=== PATIENT | female | born 1965 | race African-American/Black ===

== ENCOUNTER 2016-10-07 19:24 | Emergency (ER) | payer BC ==
--- NOTE | 2016-10-07 19:37 | PDOC ---
History of Present Illness <Lukas Medley - Last Filed: 10/07/16 19:33> - General History Source: Patient Exam Limitations: No Limitations <Alec Whipple - Last Filed: 10/07/16 19:38> - General Chief Complaint: Chest Pain Stated Complaint: CHEST PAIN X ONE WEEK Time Seen by Provider: 10/07/16 19:25 - History of Present Illness Initial Comments: 10/07/16 19:38 The patient is a 50 year old female, with a significant past medical history of SBO, who presents to the emergency department with chest pain for the past week. She notes that her chest pain is intermittent in nature, with radiation to her left arm. She denies any modifying factors. She reports that she has been under stress lately. She notes that she took an Aspirin prior to coming to the ED. 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 She denies shortness of breath, diaphoresis, nausea or vomiting. Allergies: Penicillins Past surgical history: tubal ligation, rotator cuff repair right shoulder 2010 Social history: Former smoker (quit 20 years ago). Alcohol use. No drug use reported PMD: Dr. Yulia Deleon (Alec Whipple) Past History - Past Medical History Anemia: No Asthma: No Cancer: No Cardiac Disorders: No CVA: No COPD: No CHF: No Dementia: No Diabetes: No GI Disorders: Yes (SBO) Disorders: No HTN: No Hypercholesterolemia: No Liver Disease: No Seizures: No Thyroid Disease: No - Surgical History Abdominal Surgery: Yes (tubal ligation) Appendectomy: No Cardiac Surgery: No Cholecystectomy: No Lung Surgery: No Neurologic Surgery: No Orthopedic Surgery: Yes (rotator cuff repair right shoulder 2010) - Reproductive History Tubal Ligation: Yes - Psycho/Social/Smoking Cessation Hx Anxiety: No Suicidal Ideation: No Smoking Status: No Smoking History: Former smoker Have you smoked in the past 12 months: No Number of Cigarettes Smoked Daily: 0 If you are a former smoker, when did you quit?: 20 YEARS AGO Information on smoking cessation initiated: No Hx Alcohol Use: No Drug/Substance Use Hx: No Substance Use Type: None Hx Substance Use Treatment: No <Lukas Medley - Last Filed: 10/07/16 19:33> <Alec Whipple - Last Filed: 10/07/16 19:38> - Past Medical History Allergies/Adverse Reactions: Allergies Allergy/AdvReac Type Severity Reaction Status Date / Time Penicillins Allergy Rash Verified 10/07/16 19:26 Home Medications: Ambulatory Orders NK [No Known Home Medication] 11/11/15 Cardiac Specific PMH - Complaint Specific PMHX Angina: No Cardiac Arrhythmia: No Cardiac Stent: No GERD: Yes Pacemaker: No Pulmonary Embolus: No Peripheral Vascular Disease: No <Lukas Medley - Last Filed: 10/07/16 19:33> Review of Systems - Review of Systems Able to Perform ROS?: Yes Cardiac (ROS): Yes: Chest Pain All Other Systems: Reviewed and Negative <Alec Whipple - Last Filed: 10/07/16 19:38> *Physical Exam - Physical Exam General Appearance: Yes: Nourished, Appropriately Dressed, Other (slightly anxious). No: Apparent Distress HEENT: positive: Normal ENT Inspection Neck: positive: Tender (lt trapz + trigger point reproducing symptoms) Respiratory/Chest: positive: Chest Tender (lt 2 ICS mcl), Lungs Clear, Normal Breath Sounds. negative: Respiratory Distress Cardiovascular: positive: Regular Rhythm, Regular Rate Musculoskeletal: positive: Normal Inspection. negative: Vertebral Tenderness Extremity: positive: Normal Capillary Refill, Normal Inspection, Normal Range of Motion Integumentary: positive: Normal Color. negative: Rash Neurologic: positive: Fully Oriented, Alert, Normal Mood/Affect, Normal Response , Motor Strength 5/5 <Lukas Medley - Last Filed: 10/07/16 19:33> - Vital Signs Last Vital Signs Temp Pulse Resp BP Pulse Ox 98.3 F 70 16 118/83 99 10/07/16 19:27 10/07/16 19:27 10/07/16 19:27 10/07/16 19:27 10/07/16 19:27 Heart Score/ECG Review - Electrocardiogram EKG: Normal <Lukas Medley - Last Filed: 10/07/16 19:33> *DC/Admit/Observation/Transfer <Lukas Medley - Last Filed: 10/07/16 19:33> <Alec Whipple - Last Filed: 10/07/16 19:38> Diagnosis at time of Disposition: Cervical radiculopathy - Discharge Dispostion Disposition: HOME Condition at time of disposition: Stable - Referrals Referrals: Yulia Deleon MD [Primary Care Provider] - Call tomorrow - Patient Instructions Printed Discharge Instructions: DI for Atypical Chest Pain Additional Instructions: IBUPROFEN 400 MG 3 TIMES A DAY FOR 3 DAYS SEE YOUR DOCTOR THIS WEEK RETURN IF WORSENING OR NEW SYMPTOMS - Attestations Scribe Attestion: 10/07/16 19:38 Documentation prepared by Alec Whipple, acting as medical planner for Lukas Medley MD (Sole,Alec South)
[2016-10-07 19:56] VITALS: BP 118/83; PULSE 70; TEMP 98.3; BMI 38.7
--- NOTE | 2016-10-09 21:34 | EKG ---
Test Reason : Blood Pressure : / mmHG Vent. Rate : 067 BPM Atrial Rate : 067 BPM P-R Int : 166 ms QRS Dur : 084 ms QT Int : 390 ms P-R-T Axes : 038 029 016 degrees QTc Int : 412 ms NORMAL SINUS RHYTHM NORMAL ECG WHEN COMPARED WITH ECG OF 07-APR-2014 08:37, NO SIGNIFICANT CHANGE WAS FOUND Confirmed by MARIAH NELSON MD ([id number]) on 10/09/2016 9:33:32 PM Referred By: SHAY SHARMA Confirmed By:MARIAH NELSON MD
== END 2016-10-07 19:44 | disposition home or self-care (01) ==
LOC: FER 19:24
DX: M54.12 Radiculopathy, cervical region (principal); K56.60 Unspecified intestinal obstruction; Z87.891 Personal history of nicotine dependence
CPT/HCPCS: 93005; 93010; 99281-25

== ENCOUNTER 2017-01-05 21:52 | Emergency (ER) | payer BC ==
[2017-01-05 21:59] VITALS: BP 123/76; PULSE 80; TEMP 97.6; BMI 40.3
--- NOTE | 2017-01-05 22:27 | PDOC ---
History of Present Illness - General Chief Complaint: Injury Stated Complaint: LEFT ANKLE PAIN Time Seen by Provider: 01/05/17 22:04 History Source: Patient Exam Limitations: No Limitations - History of Present Illness Initial Comments: 01/05/17 22:32 This is a 51-year-old female who comes in complaining of twisted her left ankle while at work. Patient denies any other injuries. Patient complaining of pain over the lateral portion of her left ankle. Patient is able to ambulate. PAST MEDICAL HISTORY: no significant history PAST SURGICAL HISTORY: no significant history FAMILY HISTORY: no pertinant history SOCIAL HISTORY: Pt lives with family and is employed. MEDICATIONS: reviewed ALLERGIES: As per nursing notes Review of Systems General: No fevers or chills, no weakness, no weight loss HEENT: No change in vision. No sore throat,. No ear pain CardioVascular: No chest pain or shortness of breath Respiratory:No cough, or wheezing. Gastrointestinal: no nausea, vomitting, diarrhea or constipation, No rectal bleeding Genitourinary: No dysuria, hematuria, or frequency Musculoskeletal: Left ankle pain as per history of present illness Neurologic: No headache, vertigo, dizziness or loss of consciousness Psychiatric: nor depression Skin: No rashes or easy bruising Endocrine: no increased thirst or abnormal weight change Allergic: no skin or latex allergy All other systems reviewed and normal GENERAL: The patient is awake, alert, and fully oriented, in no acute distress. HEAD: Normal with no signs of trauma. EYES: Pupils equal, round and reactive to light, extraocular movements intact, sclera anicteric, conjunctiva clear. EXTREMITIES: Normal range of motion, no edema. Left ankle there is some swelling over the lateral malleolus with some tenderness, there is no tendernessof the fifth metatarsal neurovascular distal is intact NEUROLOGICAL: Normal speech, normal gait. PSYCH: Normal mood, normal affect. SKIN: Warm, Dry, normal turgor, no rashes or lesions noted. X-ray reviewed by me read as normal no acute bony pathology Patient given Chad wrap and discharged will follow-up with her doctor as needed Past History - Past Medical History Allergies/Adverse Reactions: Allergies Allergy/AdvReac Type Severity Reaction Status Date / Time Penicillins Allergy Rash Verified 01/05/17 21:54 Home Medications: Ambulatory Orders Famotidine [Pepcid] 40 mg PO BID 01/05/17 Anemia: No Asthma: No Cancer: No Cardiac Disorders: No CVA: No COPD: No CHF: No Dementia: No Diabetes: No GI Disorders: Yes (SBO) Disorders: No HTN: No Hypercholesterolemia: No Liver Disease: No Seizures: No Thyroid Disease: No - Surgical History Abdominal Surgery: Yes (tubal ligation) Appendectomy: No Cardiac Surgery: No Cholecystectomy: No Lung Surgery: No Neurologic Surgery: No Orthopedic Surgery: Yes (rotator cuff repair right shoulder 2011) - Reproductive History Tubal Ligation: Yes - Psycho/Social/Smoking Cessation Hx Anxiety: No Suicidal Ideation: No Smoking Status: No Smoking History: Former smoker Have you smoked in the past 12 months: No Number of Cigarettes Smoked Daily: 0 If you are a former smoker, when did you quit?: 20 YEARS AGO Information on smoking cessation initiated: No Hx Alcohol Use: Yes (RARE) Drug/Substance Use Hx: No Substance Use Type: None Hx Substance Use Treatment: No *Physical Exam - Vital Signs Last Vital Signs Temp Pulse Resp BP Pulse Ox 97.6 F 80 15 123/76 97 01/05/17 21:53 01/05/17 21:53 01/05/17 21:53 01/05/17 21:53 01/05/17 21:53 *DC/Admit/Observation/Transfer Diagnosis at time of Disposition: Sprain of left ankle Qualifiers: Encounter type: initial encounter Involved ligament of ankle: unspecified ligament Qualified Code(s): S93.402A - Sprain of unspecified ligament of left ankle, initial encounter - Discharge Dispostion Disposition: HOME Condition at time of disposition: Good Admit: No - Patient Instructions Additional Instructions: Tylenol or Motrin as needed for pain. Chad wrap the ankle for comfort and support. Return to the emergency department immediately with ANY new, persistent or worsening symptoms. Continue any medications as previously prescribed by your physician. You should follow up with your primary doctor as soon as possible regarding today's emergency department visit. . Please make sure your doctor reviews the results of your emergency evaluation. Thank you for coming to the Emergency Department today for your care. It was a pleasure to see you today. Please note that your evaluation is INCOMPLETE until you follow-up with your doctor.
== END 2017-01-05 22:44 | disposition home or self-care (01) ==
LOC: FER 21:52
DX: S93.402A Sprain of unspecified ligament of left ankle, initial encounter (principal); X58.XXXA Exposure to other specified factors, initial encounter; Y93.9 Activity, unspecified; Y92.9 Unspecified place or not applicable; Y99.0 Civilian activity done for income or pay; Z87.891 Personal history of nicotine dependence
CPT/HCPCS: 73610-TC-LT; 99282-25

== ENCOUNTER 2018-05-05 16:03 | Emergency (ER) | payer OTHER, BC ==
--- NOTE | 2018-05-05 16:06 | PDOC ---
History of Present Illness <Estefania Arceo Zachcharanjit - Last Filed: 05/05/18 16:46> - History of Present Illness Initial Comments: 05/05/18 16:36 The patient is a 52 year old right hand dominant female with no significant PMH who presents for evaluation of right hand pain. 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 She reports pain to her right hand prompting her presentation to the ED for further evaluation. She otherwise denies any other injuries, numbness, tingling , or weakness and otherwise denies fevers, chills, SOB, chest pain, nausea, vomiting, abdominal pain, or changes with urination or bowel movements. <Gucci Barahona - Last Filed: 05/05/18 17:06> - General Chief Complaint: Pain, Acute Stated Complaint: right hand pain Time Seen by Provider: 05/05/18 16:05 Past History <Estefania Arceo Fuad - Last Filed: 05/05/18 16:46> - Past Medical History Anemia: No Asthma: No Cancer: No Cardiac Disorders: No CVA: No COPD: No CHF: No Dementia: No Diabetes: No GI Disorders: Yes (SBO) Disorders: No HTN: No Hypercholesterolemia: No Liver Disease: No Seizures: No Thyroid Disease: No - Surgical History Abdominal Surgery: Yes (tubal ligation) Appendectomy: No Cardiac Surgery: No Cholecystectomy: No Lung Surgery: No Neurologic Surgery: No Orthopedic Surgery: Yes (rotator cuff repair right shoulder 2011) - Reproductive History Tubal Ligation: Yes - Suicide/Smoking/Psychosocial Hx Smoking Status: No Smoking History: Former smoker Have you smoked in the past 12 months: No Number of Cigarettes Smoked Daily: 0 If you are a former smoker, when did you quit?: 20 YEARS AGO Hx Alcohol Use: Yes (RARE) Drug/Substance Use Hx: No Substance Use Type: None Hx Substance Use Treatment: No <Gucci Barahona - Last Filed: 05/05/18 17:06> - Past Medical History Allergies/Adverse Reactions: Allergies Allergy/AdvReac Type Severity Reaction Status Date / Time Penicillins Allergy Rash Verified 05/05/18 16:04 Home Medications: Ambulatory Orders NK [No Known Home Medication] 05/05/18 Review of Systems - Review of Systems Comments:: 05/05/18 17:01 Constitutional: No fevers, chills, fatigue, malaise HEENT: No Rhinorrhea, nasal congestion, visual changes Cardiovascular: No chest pain, syncope, palpitations, lightheadedness Respiratory: No Cough, SOB, Hemoptysis, Gastrointestinal: No Abdominal pain, Nausea, Vomiting, Constipation, Diarrhea, Melena Genitourinary: No Dysuria, Frequency, Urgency, Hesitancy, Hematuria, Flank pain Musculoskeletal: Right hand pain. No Myalgia, arthralgia Skin: No rashes, itching, bruising, pallor Neurologic: No Headache, Dizziness, Numbness, Weakness, or Tingling Psychiatric: No Hallucinations. No SI or HI <Gucci Barahona - Last Filed: 05/05/18 17:06> *Physical Exam - Vital Signs Last Vital Signs Temp Pulse Resp BP Pulse Ox 98.3 F 83 18 109/72 97 05/05/18 16:04 05/05/18 16:04 05/05/18 16:04 05/05/18 16:04 05/05/18 16:04 <Estefania Arceo - Last Filed: 05/05/18 16:46> - Physical Exam Comments: 05/05/18 17:02 General Appearance: Nourished. No Apparent Distress HEENT: No Pharyngeal Erythema, Tonsillar Exudate, Tonsillar Erythema Neck: No Cervical Lymphadenopathy Respiratory/Chest: Lungs Clear, Normal Breath Sounds. No Crackles, Rales, Rhonchi, Wheezing Cardiovascular: Regular Rhythm, Regular Rate. No Murmur, Gallops, Rubs Gastrointestinal/Abdominal: Normal Bowel Sounds, Soft. No Guarding, Rebound, Tenderness Musculoskeletal: Tenderness to palpation along the anatomic snuff box of the right hand. Full ROM. Strength 5/5. Sensation to light touch and temp intact bilaterally. 2+ radial pulses bilaterally. No CVA Tenderness Extremity: Normal Capillary Refill Integumentary: Normal Color, Dry, Warm Neurologic: Fully Oriented, Alert, Normal Mood/Affect, Normal Response, <Gucci Barahona - Last Filed: 05/05/18 17:06> Procedures - Splinting Splint Location: Right: Hand Pre-Proc Neuro Vasc Exam: normal Hand-Made Type: orthoglass Splint Type: Yes: Thumb Spica Post-Proc Neuro Vasc Exam: normal Chad Bandage: yes, 3" Complications: No <Gucci Barahona - Last Filed: 05/05/18 17:06> ED Treatment Course - RADIOLOGY Radiology Studies Ordered: Category Date Time Status HAND- RIGHT [RAD] Stat Radiology 05/05/18 16:14 Taken - Medications Given in the ED: ED Medications Discontinued Medications Generic Name Dose Route Start Last Admin Trade Name Jason PRN Reason Stop Dose Admin Acetaminophen 1,000 mg 05/05/18 16:19 05/05/18 16:44 Tylenol - PO 05/05/18 16:20 1,000 mg ONCE ONE Administration Ibuprofen 600 mg 05/05/18 16:30 05/05/18 16:43 Motrin - PO 05/05/18 16:31 600 mg ONCE ONE Administration <Estefania Arceo - Last Filed: 05/05/18 16:46> Medical Decision Making - Medical Decision Making 05/05/18 17:03 The patient is a 52 year old right hand dominant female with no significant PMH who presents for evaluation of right hand pain. Differential includes but is not limited to: Fracture, contusion, ligamentous injury. We obtain plain films of the right hand which did not show any obvious fracture as preliminarily read by ED physician. However, given the location of the patient's pain, we placed the patient in a splint and are comfortable discharging the patient home with orthopedic follow up. We discussed the results, plan, and return precautions with the patient who voiced understanding and is agreeable with the plan. <Gucci Barahona - Last Filed: 05/05/18 17:06> *DC/Admit/Observation/Transfer - Discharge Dispostion Decision to Admit order: No <Estefania Arceo - Last Filed: 05/05/18 16:46> <Gucci Barahona - Last Filed: 05/05/18 17:06> Diagnosis at time of Disposition: Sprain of right thumb - Discharge Dispostion Disposition: HOME Condition at time of disposition: Stable - Referrals Referrals: Keshawn Angulo MD [Staff Physician] - Eladio Perdue MD [Staff Physician] - - Patient Instructions Printed Discharge Instructions: DI for Finger Sprain, DI for Ulnar Collateral Ligament Sprain of Thumb Additional Instructions: you most likely sprained the base of your thumb where it is held together by ligaments XR did not show a fracture. but due to pain in the area of your wrist and base of thumb, there could be an occult fracture that needs repeat X rays in about 1- 2 weeks. we have provided follow up with plastics/hand surgeon for adequate followup and reevaluation you were also splinted for the possible injury/fracture, so to take precautions and immobilize, rest ice and elevate pain control as needed with motrin/tylenol return to the ED if worsening symptoms or neurologic changes such as numbness, tingling, weakness or signs of infection/redness/pallor. - Post Discharge Activity Forms/Work/School Notes: Back to Work
[2018-05-05 16:07] VITALS: BP 109/72; PULSE 83; TEMP 98.3; BMI 38.7
[2018-05-05] MEDS ORDERED: ACETAMINOPHEN 325 MG TABLET (FP) PO ONE (16:19)
[2018-05-05] MEDS ORDERED: IBUPROFEN 600 MG TABLET (FP) PO ONE ×2 (16:30→16:41)
--- NOTE | 2018-05-05 16:38 | PDOC ---
Attending Attestation - Resident Resident Name: Gucci Barahona - ED Attending Attestation I have performed the following: I have examined & evaluated the patient, The case was reviewed & discussed with the resident, I agree w/resident's findings & plan - HPI HPI: 05/05/18 16:39 Hines 52 YOF with right hand pain s/p jamming in door while at work. c/o right base of thumb and hand pain, worse with moving. No weakness or paresthesias. Redness and swelling improved. No meds taken. 05/05/18 16:41 - Physicial Exam PE: 05/05/18 16:41 General: NAD, well appearing Vascular: 2+ DP pulses symmetric and equal. Skin: color normal color, warm and well perfused. Neuro: SILT, 5/5 strength against resistance as below in MSK exam MSK: soft compartment. sensation grossly intact in median/radial/ulnar distribution. 5/5 ok sign sign, 5/5 finger/hand adduction bilaterally. 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 2+ radialis pulses bilaterally and symmetric. +right base of thumb and snuffbox tenderness. no prox forearm or elbow tenderness in RUE. - Medical Decision Making 05/05/18 16:40 Hines 52 YOF with right hand pain s/p jamming in door while at work. C/o right base of thumb and hand pain, worse with movement. vitals wnl. DDx extremity injury: Thumb Sprain, contusion, IP fx, scaphoid fx, hematoma. Low suspicion for compartment syndrome, NVI and no neuro deficits. low suspicion for vascular abnormality or infection. more likely thumb sprain, UCL sprain vs early scaphoid fx. ED course: pain control with motrin tylenol. XR right hand on wet read with normal alignment, no fx of IP/phalanges/ metacarpals. no scaphoid fx acutely. no dislocation DC with ortho/hand followup, referrals given. MADDIE, immobilization with radial gutter splint in case of occult scaphoid fx and warrants repeat XR in 1-2 weeks. pain control with OTC meds as needed. DC in stable condition, return precautions discussed. compartment syndrome sx discussed, if changes in color/neuro/paresthesias/weakness or signs of infection return sooner for reevaluation. 05/05/18 16:43 05/05/18 16:49
[2018-05-05] MEDS ORDERED: ACETAMINOPHEN 500 MG TABLET (FP) ONE (16:42)
== END 2018-05-05 16:57 | disposition home or self-care (01) ==
LOC: FER 16:03
PROC: 2W3GX1Z Immobilization of Right Thumb using Splint (ICD-10-PCS; principal; 2018-05-05)
DX: S63.601A Unspecified sprain of right thumb, initial encounter (principal); W23.0XXA Caught, crushed, jammed, or pinched between moving objects, initial encounter; Y93.89 Activity, other specified; Y92.9 Unspecified place or not applicable
CPT/HCPCS: 73130-TC-RT-FY; 99282-25

== ENCOUNTER 2018-06-20 05:03 | Day surgery (SDC) | payer BC, OTHER ==
[2018-06-18 10:27] VITALS: BMI 37.8
--- NOTE | 2018-06-19 14:23 | HP ---
Past Medical History - Admission Chief Complaint: Heavy Irregular bleeding. History of Present Illness: 52 year old AB3 who has had regular monthly periods except for May 25, 2018 when she bled profusely with clothes at work soaking through her clothes. Bleeding subsided and then to bleed again on June 14, 2018, heavy and gradually tapering on June 17, 2018 when she was seen in the office. Pelvic ultrasound at that time revealed. 6 by 6 by 4.9 cm anteverted with an ill defined endometrium of 11.1 cm. Thre was present a hemorrhagic cyst of the left ovary of 1.3 cm. Bleeding was associated with intense cramps. Patient was seen of 05/06/18 for annual exam with negative pap smear and history of heavy menses. PElvic ultrasound was recommended at that visit. - Past Medical History Gastrointestinal: Yes: Gastritis ...: 6 ...Para: 3 ...Spon : 3 Endocrine: Yes: Other (Gestational diabetes) - Past Surgical History Past Surgical History: Yes: (x3) Hx Myomectomy: No Hx Transabdominal Cerclage: No Additional Surgical History: Csection times 3. Knee surgery. Hernia surgery. Right Rotator cuff repair January 2010. EGD 04/14/17 Chronic gastritis. 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 Home Medications - Allergies Allergies/Adverse Reactions: Allergies Allergy/AdvReac Type Severity Reaction Status Date / Time Penicillins Allergy Rash Verified 05/05/18 16:04 - Home Medications Home Medications: Ambulatory Orders Oxycodone HCl/Acetaminophen [Percocet 10-325 mg Tablet] 1 each PO PRN PRN Family Disease History - Family Disease History Family Disease History: Diabetes: Mother Other Family History: Cousin breast cancer Review of Systems - Review of Systems Constitutional: reports: No Symptoms Cardiovascular: reports: No Symptoms Respiratory: reports: No Symptoms Genitourinary: reports: No Symptoms Breasts: reports: No Symptoms Reported Neurological: reports: No Symptoms Psychiatric: reports: No Symptoms 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 Constitutional: Yes: Well Nourished, No Distress, Anxious HENT: Yes: WNL Neck: Yes: WNL, Supple, Trachea Midline Cardiovascular: Yes: WNL, Regular Rate and Rhythm Respiratory: Yes: WNL, CTA Bilaterally Gastrointestinal: Yes: WNL, Normal Bowel Sounds, Soft Pelvis: Yes: WNL External Genitalia: Yes: Normal Vaginal Exam: Yes: Normal, Bleeding Cervix: Yes: Normal, Bleeding Uterus: Yes: Normal, Anteverted Adnexa: Normal: Bilateral Extremities: Yes: WNL Edema: No Neurological: Yes: WNL Imaging - Results Ultrasound: Image Reviewed (Thickened endometrium) Assessment/Plan Excessive and irregular menstrual bleeding Thickened endometrium Plan: D and C with Hysteroscopy 06/20/18
--- NOTE | 2018-06-20 07:54 | HP ---
History & Physical Update - History History: No Change - Physical Physical: No Change - Assessment Assessment: No Change - Plan Plan: No Change (Discussed low hemoglobin)
[2018-06-20] MEDS ORDERED: IBUPROFEN 400 MG TABLET (FP) PO PRN (08:37)
[2018-06-20] MEDS ORDERED: ACETAMINOPHEN 325 MG TABLET (FP) PO PRN (08:37)
[2018-06-20] MEDS ORDERED: oxyCODONE HCL 5 MG TABLET ONE (09:27)
[2018-06-20] MEDS ORDERED: oxyCODONE HCL 5 MG TABLET PO PRN (11:18)
[2018-06-20] MEDS ORDERED: LACTATED RINGERS SOLUTION 1,000 ML IV SCH (11:30)
--- NOTE | 2018-06-20 11:50 | OP ---
DATE OF OPERATION: 06/20/2018 PREOPERATIVE DIAGNOSIS: Menorrhagia, irregular bleeding, thickened endometrium. POSTOPERATIVE DIAGNOSIS: Menorrhagia, irregular bleeding, thickened endometrium. OPERATION: Dilatation and curettage, hysteroscopy. SURGEON: Colton Ledbetter MD ANESTHESIA: General. ANESTHESIOLOGIST: Clyde Beach MD SPECIMEN: Endometrial curettings. BLOOD LOSS: 10 mL. FLUIDS: 300 mL. PROCEDURE: Under general anesthesia, the patient was placed in dorsal lithotomy position, prepped and draped in the usual sterile manner. Pelvic examination was performed revealing the uterus as anterior, normal in size. Adnexa was negative. A weighted speculum was inserted in the vagina. The anterior lip of the cervix was grasped with a sharp-tooth tenaculum. The uterus was sounded to approximately 6-7 cm. With cervical dilatation, a 5-mm hysteroscope was then inserted. Saline was used as a distending medium. The uterine cavity was visualized. No irregularities, polyps, or fibroids detected. The lining appeared thickened. The hysteroscope was then removed. Cervix was further dilated. Curettage of the lining of the uterus was performed. Polypoid type tissue was obtained. The tenaculum was then removed. No bleeding detected. Patient was then brought to the recovery room in satisfactory condition. Justin [id number]
[2018-06-20 12:23] VITALS: BP 130/70; PULSE 70; TEMP 98
[2018-06-20] MEDS ORDERED: ACETAMINOPHEN 1000 MG/100 ML VIAL (NON FORMULARY) IVPB ONE (15:18)
--- NOTE | 2018-06-25 17:01 | PATH ---
Surgical Pathology Report Patient Name: ANIL BRAND Med. Rec. #: [id number] /Age/Gender: 1965 (Age: 52) / F Account: [id number] Location: [facility] SUR[facility] Taken: 06/20/2018 Received: 06/20/2018 Reported: 06/25/2018 Physicians: Colton Ledbetter M.D. Specimen(s) Received ENDOMETRIAL CURETTINGS Clinical History Prolonged bleeding 52 year old Final Diagnosis ENDOMETRIAL CURETTINGS, DILATION AND CURETTAGE: POLYPOID FRAGMENTS OF ENDOMETRIUM WITH CHRONIC ENDOMETRITIS. SCANT BENIGN ENDOCERVIX. Comment: Immunohistochemical stains performed at [facility], [place], [place] ([id number]) and interpreted at [facility] show plasma cells are highlighted by CD138, supporting the above diagnosis. Electronically Signed Johnna Edmonds M.D. Gross Description Received in formalin, labeled "endometrial curettings" are multiple dark brown portions of soft tissue measuring 3 x 3 x 0.3 cm in aggregate. The specimens are submitted in toto in two cassettes. DYLANS/06/20/2018 taylor/06/20/2018
== END 2018-06-20 12:30 | disposition home or self-care (01) ==
LOC: JASU-SURG 05:03
PROVIDERS: ATTEND Obstetrics & Gynecology
PROC: 0UDB7ZX Extraction of Endometrium, Via Natural or Artificial Opening, Diagnostic (ICD-10-PCS; principal; 2018-06-20 08:00)
PROC: 0UJD8ZZ Inspection of Uterus and Cervix, Via Natural or Artificial Opening Endoscopic (ICD-10-PCS; 2018-06-20 08:00)
DX: N92.0 Excessive and frequent menstruation with regular cycle (principal); N85.00 Endometrial hyperplasia, unspecified; N93.9 Abnormal uterine and vaginal bleeding, unspecified
CPT/HCPCS: 84703; 88305-TC; 94760; J0131

== ENCOUNTER 2018-09-09 06:44 | Day surgery (SDC) | payer BC, OTHER ==
[2018-09-05 11:32] VITALS: BMI 37.1
[2018-09-09] MEDS ORDERED: BUPIVACAINE HCL/PF 0.5% (5MG/ML) 10 ML VIAL ONE ×2 (07:07→07:35)
[2018-09-09] MEDS ORDERED: MORPHINE SULFATE 10 MG/1 ML *VIAL ONE (07:09)
[2018-09-09] MEDS ORDERED: MIDAZOLAM HCL 2 MG/2 ML SINGLE DOSE VIAL ONE (07:25)
[2018-09-09] MEDS ORDERED: PROPOFOL 20 ML ONE ×2 (07:25)
[2018-09-09] MEDS ORDERED: SUCCINYLCHOLINE CHLORIDE 200 MG/10 ML VIAL ONE (07:29)
[2018-09-09] MEDS ORDERED: BUPIVACAINE HCL/PF 0.5% (5MG/ML) 10 ML VIAL IJ ONE ×2 (09:07)
[2018-09-09] MEDS ORDERED: MORPHINE SULFATE/PF 10 MG/ML ML IT ONE (09:21)
[2018-09-09] MEDS ORDERED: ONDANSETRON 4 MG/2 ML VIAL IVPUSH PRN (09:55)
[2018-09-09] MEDS ORDERED: oxyCODONE HCL 5 MG TABLET PO PRN (09:55)
[2018-09-09] MEDS ORDERED: PROMETHAZINE HCL 25 MG/1 ML VIAL IVPUSH PRN (09:55)
[2018-09-09 10:40] VITALS: TEMP 98.2
[2018-09-09] MEDS ORDERED: oxyCODONE HCL 5 MG TABLET ONE (11:07)
[2018-09-09 11:18] VITALS: PULSE 64
[2018-09-09 12:05] VITALS: BP 110/60
--- NOTE | 2018-09-10 09:16 | OP ---
DATE OF OPERATION: DATE OF DICTATION: 09/09/2018 PREOPERATIVE DIAGNOSIS: Torn medial meniscus, left knee. POSTOPERATIVE DIAGNOSIS: Torn medial and lateral meniscus, left knee, with chondromalacia, hypertrophic synovium, and joint debris. PROCEDURE PERFORMED: arthroscopy left knee with partial medial and lateral meniscectomy, chondroplasty, synovectomy, joint debridement. SURGEON: Luis Gooden MD GAS ENGINE OPERATOR GENERATORS: Jonas Walton, [facility] ANESTHESIA: Denton Reardon MD, general anesthesia. DESCRIPTION OF PROCEDURE: Procedure consisted of the patient being brought in the operating room and gently transferred from the stretcher to the OR table. All bony prominences were padded. The left leg was prepared and draped in a sterile fashion. Patient was given intravenous antibiotics and copious irrigation throughout the procedure to minimize risk of infection. The risks, benefits discussion was conducted with the patient, which was inclusive of but not limited to infection, bleeding, , paralysis, increased pain, need for repeat surgery. Patient asked questions, understood the procedure and decided to proceed with surgical treatment. Following sterile preparation, draping the left knee, appropriate timeout was conducted which was inclusive of but not limited to side of surgery, surgeon, type of surgery, anesthesiologist, and all pertinent matters. Following separate preparation, draping, timeout, surgery was initiated. His leg was exsanguinated using sterile Esmarch bandage. Tourniquet was inflated to 350 mmHg. Suprapatellar, medial, and lateral joint line portals were used to introduce arthroscope and arthroscopic instruments. The knee was examined. There was noted to be hypertrophic synovium in the suprapatellar pouch. Partial meniscectomy was performed. The inferior surface of the patella damage consisting of chondromalacia, and this was smoothed using shaver disk and wand. There was noted to be no loose body or plaque in the medial and lateral gutters. Medial meniscus was found to have , and this was resected using shaver disk and wand in the intercondylar regions of the joint. Cruciate ligaments were found to be intact. There was noted to be chondromalacia in the intercondylar region, and this was shaved. Lateral meniscus was found to have a tear of the posterior horn and this needed to be shaved. Knee was then copiously irrigated with sterile saline irrigant. Wounds were closed with 4-0 undyed Vicryl followed by Steri-Strips. Xeroform, 4 x 4's, sterile Webril, Chad bandage . The tourniquet was deflated after approximately 20 minutes tourniquet time. There were no intraoperative complications. Justin [id number]
== END 2018-09-09 11:50 | disposition home or self-care (01) ==
LOC: FASU 06:44
PROVIDERS: ATTEND Orthopaedic Surgery
PROC: 0SBD4ZZ Excision of Left Knee Joint, Percutaneous Endoscopic Approach (ICD-10-PCS; 2018-09-09)
PROC: 0SBD4ZZ Excision of Left Knee Joint, Percutaneous Endoscopic Approach (ICD-10-PCS; 2018-09-09)
PROC: 0SBD4ZZ Excision of Left Knee Joint, Percutaneous Endoscopic Approach (ICD-10-PCS; principal; 2018-09-09 09:00)
DX: S83.242A Other tear of medial meniscus, current injury, left knee, initial encounter (principal); S83.282A Other tear of lateral meniscus, current injury, left knee, initial encounter; M22.42 Chondromalacia patellae, left knee; M67.262 Synovial hypertrophy, not elsewhere classified, left lower leg; M25.862 Other specified joint disorders, left knee; X58.XXXA Exposure to other specified factors, initial encounter; Y93.9 Activity, unspecified; Y92.9 Unspecified place or not applicable
CPT/HCPCS: 84703; 94760

== ENCOUNTER 2018-09-23 13:42 | Emergency (ER) | payer BC, OTHER ==
[2018-09-23 13:48] VITALS: BP 111/57; PULSE 78; TEMP 98.6; BMI 38.2
--- NOTE | 2018-09-23 15:03 | PDOC ---
History of Present Illness - General History Source: Patient Exam Limitations: No Limitations <Romaine Yin - Last Filed: 09/23/18 14:59> - History of Present Illness Initial Comments: 09/23/18 15:14 The patient is a 52 year old female with a past medical history of anemia who presents to the emergency department for evaluation of right 5th digit toe pain. The patient reports moderate right 5th digit pain, ranked 8/10 in severity , after stubbing her toe against a wooden door yesterday. Patient reports visiting the emergency department today secondary to persistent pain. The patient denies chest pain, shortness of breath, headache, and dizziness. Denies fevers, chills, nausea, vomiting, and any bowel/urinary symptoms. Allergies: Penicillins Social history: No reported alcohol, cigarette, or drug use. Surgical history: x3, Ventral hernia repair 2013, L knee, R knee, L shoulder PCP: Dr. Deleon <Haroldo Webber - Last Filed: 09/23/18 15:15> - General Chief Complaint: Injury Stated Complaint: RT TOE INJURY Time Seen by Provider: 09/23/18 13:52 Past History - Past Medical History Anemia: Yes (ON IRON) Asthma: No Cancer: No Cardiac Disorders: No CVA: No COPD: No CHF: No DVT: No Dementia: No Diabetes: No GI Disorders: Yes (TAKES PREVACID FOR BLOATING) Disorders: No HTN: No Hypercholesterolemia: No Liver Disease: No Seizures: No Thyroid Disease: No - Surgical History Abdominal Surgery: Yes (VENTRAL HENRIA REPAIR-2013) Appendectomy: No Cardiac Surgery: No Cholecystectomy: No Lung Surgery: No Neurologic Surgery: No Orthopedic Surgery: Yes (RIGHT KNEE ARTHROSCOPY-2015) - Reproductive History Tubal Ligation: Yes - Immunization History Immunization Up to Date: Yes - Suicide/Smoking/Psychosocial Hx Smoking Status: No Smoking History: Never smoked Have you smoked in the past 12 months: No Number of Cigarettes Smoked Daily: 0 If you are a former smoker, when did you quit?: 1997 Information on smoking cessation initiated: No Hx Alcohol Use: (occasional) Drug/Substance Use Hx: No Substance Use Type: Alcohol Hx Substance Use Treatment: No <Romaine Yin - Last Filed: 09/23/18 14:59> <Haroldo Webber - Last Filed: 09/23/18 15:15> - Past Medical History Allergies/Adverse Reactions: Allergies Allergy/AdvReac Type Severity Reaction Status Date / Time Penicillins Allergy Rash Verified 09/23/18 13:42 Home Medications: Ambulatory Orders Ferrous Sulfate [Iron] 325 mg PO DAILY 09/05/18 Lansoprazole [Prevacid] 15 mg PO HS 09/05/18 Ibuprofen [Motrin -] 600 mg PO QID PRN #28 tablet 09/23/18 Review of Systems - Review of Systems Able to Perform ROS?: Yes Comments:: GENERAL/CONSTITUTIONAL: No fever or chills. No weakness. HEAD, EYES, EARS, NOSE AND THROAT: No change in vision. No ear pain or discharge. No sore throat. CARDIOVASCULAR: No chest pain or shortness of breath. RESPIRATORY: No cough, wheezing, or hemoptysis. GASTROINTESTINAL: No nausea, vomiting, diarrhea or constipation. GENITOURINARY: No dysuria, frequency, or change in urination. MUSCULOSKELETAL: (+)Right 5th digit pain. No joint or muscle swelling or pain. No neck or back pain. SKIN: No rash NEUROLOGIC: No headache, vertigo, loss of consciousness, or change in strength/ sensation. ENDOCRINE: No increased thirst. No abnormal weight change. HEMATOLOGIC/LYMPHATIC: No anemia, easy bleeding, or history of blood clots. ALLERGIC/IMMUNOLOGIC: No hives or skin allergy. <Haroldo Webber - Last Filed: 09/23/18 15:15> *Physical Exam - Vital Signs Last Vital Signs Temp Pulse Resp BP Pulse Ox 98.6 F 78 18 111/57 L 99 09/23/18 13:42 09/23/18 13:42 09/23/18 13:42 09/23/18 13:42 09/23/18 13:42 <Romaine Yin - Last Filed: 09/23/18 14:59> - Vital Signs Last Vital Signs Temp Pulse Resp BP Pulse Ox 98.6 F 78 18 111/57 L 99 09/23/18 13:42 09/23/18 13:42 09/23/18 13:42 09/23/18 13:42 09/23/18 13:42 - Physical Exam Comments: GENERAL: Awake, alert, and fully oriented, in no acute distress HEAD: No signs of trauma EYES: PERRLA, EOMI, sclera anicteric, conjunctiva clear NECK: Normal ROM, supple. EXTREMITIES: (+)2 plus DP pulse. (+)Sensation and strength intact throughout. Less than 2 sec capillary refill in each digit. No tenderness in ankle. (+)Mild tenderness to palpation in right 5th digit, not grossly deformed. Normal range of motion, no edema. No clubbing or cyanosis. No cords, or erythema. NEUROLOGICAL: Cranial nerves II through XII grossly intact. Normal speech, normal gait SKIN: Warm, Dry, normal turgor, no rashes or lesions noted. <Haroldo Webber - Last Filed: 09/23/18 15:15> Moderate Sedation - Procedure Monitoring Vital Signs: Procedure Monitoring Vital Signs Temperature 98.6 F 09/23/18 13:42 Pulse Rate 78 09/23/18 13:42 Respiratory Rate 18 09/23/18 13:42 Blood Pressure 111/57 L 09/23/18 13:42 O2 Sat by Pulse Oximetry (%) 99 09/23/18 13:42 <Romaine Yin - Last Filed: 09/23/18 14:59> - Procedure Monitoring Vital Signs: Procedure Monitoring Vital Signs Temperature 98.6 F 09/23/18 13:42 Pulse Rate 78 09/23/18 13:42 Respiratory Rate 18 09/23/18 13:42 Blood Pressure 111/57 L 09/23/18 13:42 O2 Sat by Pulse Oximetry (%) 99 09/23/18 13:42 <Haroldo Webber - Last Filed: 09/23/18 15:15> ED Treatment Course - RADIOLOGY Radiology Studies Ordered: Category Date Time Status TOE(S) RIGHT [RAD] Stat Radiology 09/23/18 13:55 Completed <Romaine Yin - Last Filed: 09/23/18 14:59> Medical Decision Making - Medical Decision Making 09/23/18 14:59 A portion of this note was written by my scribe, under my supervision. Vital Signs Temp Pulse Resp BP Pulse Ox 98.6 F 78 18 111/57 L 99 09/23/18 13:42 09/23/18 13:42 09/23/18 13:42 09/23/18 13:42 09/23/18 13:42 52 year old female presents with right 5th digit toe pain. Yesterday, accidentally stubbed her 5th digit toe. Pain persisted, so pt came to the ED. No numbness, weakness. Pt is neurovascularly intact. Xray demonstrates a nonodisplaced oblique 5th digit toe fracture. Pt placed in priscila tape and given a hard sole shoe. Weight bearing as tolerated. Motrin PRN Follow up with PMD and/or orthopedics as an outpatient. <Romaine Yin - Last Filed: 09/23/18 14:59> *DC/Admit/Observation/Transfer - Discharge Dispostion Decision to Admit order: No <Romaine Yin - Last Filed: 09/23/18 14:59> - Attestations Scribe Attestion: Documentation prepared by Haroldo Webber, acting as medical cash poster for Romaine Yin MD. <Haroldo Webber - Last Filed: 09/23/18 15:15> Diagnosis at time of Disposition: Toe fracture, right Qualifiers: Encounter type: initial encounter Toe: lesser toe Fracture type: closed Phalanx : unspecified phalanx Fracture alignment: nondisplaced Qualified Code(s): S92.504A - Nondisplaced unspecified fracture of right lesser toe(s), initial encounter for closed fracture - Discharge Dispostion Disposition: HOME Condition at time of disposition: Stable - Prescriptions Prescriptions: Ibuprofen [Motrin -] 600 mg PO QID PRN #28 tablet PRN Reason: Pain - Referrals Referrals: Yulia Deleon MD [Primary Care Provider] - Eladio Perdue MD [Staff Physician] - - Patient Instructions Printed Discharge Instructions: DI for Toe Fracture Additional Instructions: You have a small nondisplaced fracture of your fifth toe. Please use the priscila tape as much as you can. Wear the hard sole shoe. Weight bearing as tolerated. Take 600 mg ibuprofen every 6 to 8 hours as needed for pain. Follow up with your primary care physician in 1 to 2 weeks and/or follow up with orthopedics. - Post Discharge Activity
== END 2018-09-23 15:20 | disposition home or self-care (01) ==
LOC: FER 13:42
PROC: 2W3UXYZ Immobilization of Right Toe using Other Device (ICD-10-PCS; principal; 2018-09-23)
DX: S92.504A Nondisplaced unspecified fracture of right lesser toe(s), initial encounter for closed fracture (principal); W22.8XXA Striking against or struck by other objects, initial encounter; Y93.9 Activity, unspecified; Y92.9 Unspecified place or not applicable; D64.9 Anemia, unspecified
CPT/HCPCS: 73660-TC-FY; 99282-25

== ENCOUNTER 2018-11-23 04:28 | Emergency (ER) | payer BC ==
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
[2018-11-23 04:40] VITALS: BP 142/81; PULSE 95; TEMP 97.9; BMI 39.2
== END 2018-11-23 06:40 | disposition home or self-care (01) ==
LOC: FER 04:28
DX: S06.0X1A Concussion with loss of consciousness of 30 minutes or less, initial encounter (principal); S00.83XA Contusion of other part of head, initial encounter; S01.512A Laceration without foreign body of oral cavity, initial encounter; Y07.03 Male partner, perpetrator of maltreatment and neglect; S10.93XA Contusion of unspecified part of neck, initial encounter; Y04.2XXA Assault by strike against or bumped into by another person, initial encounter; Y93.89 Activity, other specified; Y92.89 Other specified places as the place of occurrence of the external cause
CPT/HCPCS: 70450-TC; 70486-TC; 72125-TC; 72128-TC; 99282-25

== ENCOUNTER 2020-02-12 03:04 | Inpatient (IN) | payer BC ==
[2020-02-12] MEDS ORDERED: SODIUM CHLORIDE 1,000 ML IV ONE (03:08)
[2020-02-12] MEDS ORDERED: KETOROLAC TROMETHAMINE 30 MG/1 ML VIAL IVPUSH ONE (03:08)
[2020-02-12] MEDS ORDERED: morphine CARPU-JECT 2 MG/1 ML DISP.SYRIN IVPUSH ONE (03:08)
--- NOTE | 2020-02-12 03:08 | PDOC ---
History of Present Illness - General Stated Complaint: ABDOMINAL PAIN & VOMTING Time Seen by Provider: 02/12/20 03:08 History Source: Patient Exam Limitations: No Limitations - History of Present Illness Initial Comments: 02/12/20 03:11 This is a 54-year-old female who comes in complaining of right flank pain radiating to her right lower quadrant approximately 6 hours ago. Patient said it was acute in onset associated with some nausea. Patient has had persistent pain ever since. Patient denies history of kidney stones or renal colic in the past. Patient denies any fever or chills. Patient denies any diarrhea. Allergies: as per nursing notes Past Medical History: none Social history: Lives with family. No smoking. No alcohol. No illicit drugs. Surgical history: None General: No fevers or chills, no weakness, no weight loss HEENT: No change in vision. No sore throat,. No ear pain CardioVascular: no chest discomfort. No shortness of breath Respiratory:No cough, or wheezing. Gastrointestinal: + nausea, + vomiting, no diarrhea or constipation, No rectal bleeding. + Right flank pain and right lower abdominal pain Genitourinary: No dysuria, hematuria, or frequency Musculoskeletal: No joint or muscle pain or swelling Neurologic: No headache, vertigo, dizziness or loss of consciousness Psychiatric: nor depression Skin: No rashes or easy bruising Endocrine: no increased thirst or abnormal weight change Allergic: no skin or latex allergy All other systems reviewed and normal Exam: General: Well-nourished well-developed individual, no acute distress HEENT: Throat: Normal, tonsils normal, no erythema or exudate Neck: Supple, no meningeal signs, no lymphadenopathy Eyes::Pupils equal reactive and round, extraocular motion intact Chest: Nontender to palpation Cardiac: S1-S2 normal, regular rate and rhythm, no murmurs rubs or gallops Respiratory: Lungs clear to auscultation bilateral Abdomen: Soft, nondistended, normal bowel sounds, there is mild tenderness on palpation right lower quadrant Back/ flank: There is no CVA tenderness on palpation of the right but there is right flank pain and tenderness on palpation. Extremities: Warm, dry, no cyanosis, clubbing, or edema Skin: No rashes Neuro: Alert and oriented x3, CN II - XII intact, nonfocal exam with normal strength, normal sensation, normal reflexes, normal gait, Psych: Normal mood and affect Assessment and plan: This is a 54-year-old female with right flank pain radiating to her right lower quadrant. Patient most likely has a kidney stone. Work-up initiated including CBC, comp., Urinalysis, urine and a spiral stone protocol CT. Patient given IV fluids, pain medication and antiemetics. 02/12/20 07:05 Patient's CAT scan showed possible large bowel obstruction versus large amount of stool. Recommended patient receive a colonoscopy to determine etiology of the probable obstruction Patient continues to be hydrated with IV fluids as she is very dry Patient's COVID status is uncertain as according to her family she had antibodies that were positive back in November and probable infection back in August however there is questionable findings on the CAT scan regarding the lung krishnan as to whether or not there appears to be groundglass opacities so CAT scan will be reevaluated by our radiologist Discussed the findings with the hospitalist who is agreed to the admission however will wait to determine where patient will go once the radiologist looks at the CAT scan and patient is also getting a chest x-ray Past History - Medical History Allergies/Adverse Reactions: Allergies Allergy/AdvReac Type Severity Reaction Status Date / Time Penicillins Allergy Rash Verified 02/12/20 03:50 Home Medications: Ambulatory Orders Lansoprazole [Prevacid] 15 mg PO HS 09/05/18 Ibuprofen [Motrin -] 600 mg PO QID PRN #28 tablet 09/23/18 Anemia: Yes (ON IRON) Asthma: No Cancer: No Cardiac Disorders: No CVA: No COPD: No CHF: No DVT: No Dementia: No Diabetes: No GI Disorders: Yes (TAKES PREVACID FOR BLOATING) Disorders: No HTN: No Hypercholesterolemia: No Liver Disease: No Seizures: No Thyroid Disease: No - Surgical History Abdominal Surgery: Yes (VENTRAL HENRIA REPAIR-2013) Appendectomy: No Cardiac Surgery: No Cholecystectomy: No Lung Surgery: No Neurologic Surgery: No Orthopedic Surgery: Yes (RIGHT KNEE ARTHROSCOPY-2016) - Reproductive History Tubal Ligation: Yes - Immunization History Immunization Up to Date: Yes - Psycho-Social/Smoking History Smoking Status: No Smoking History: Never smoked Have you smoked in the past 12 months: No Number of Cigarettes Smoked Daily: 0 If you are a former smoker, when did you quit?: 1997 Abd/GI Specific PMHX - Complaint Specific PMHX Colitis: No Diverticulitis: No Gall Bladder Disease: No GERD: Yes Hepatitis: No Irritable Bowel Synd (IBS): No Pancreatitis: No GI Ulcer Disease: No ED Treatment Course - LABORATORY CBC & Chemistry Diagram: 02/12/20 03:20 02/12/20 03:20 Discharge - Discharge Information Problems reviewed: Yes Clinical Impression/Diagnosis: Abdominal pain, Vomiting - Admission Yes - Follow up/Referral Referrals: Wyatt Ireland MD [Emergency Provider] - - Patient Discharge Instructions - Post Discharge Activity
[2020-02-12] MEDS ORDERED: ONDANSETRON 4 MG/2 ML VIAL IVPB ONE (03:10)
[2020-02-12] MEDS ORDERED: ONDANSETRON 4 MG/2 ML VIAL ONE (03:33)
[2020-02-12] MEDS ORDERED: morphine SULFATE 4 MG/ML VIAL ONE ×2 (03:33→06:06)
[2020-02-12] MEDS ORDERED: KETOROLAC TROMETHAMINE 30 MG/1 ML VIAL ONE ×2 (03:33→12:17)
[2020-02-12 04:00] LABS: BASO % 0.8 % (0-2.0); EOS % 0.7 % (0-4.5); HEMATOCRIT 37.7 % (32.4-45.2); HEMOGLOBIN 12.3 GM/dL (10.7-15.3); LYMPH % 25.2 % (8-40); MCH 28.9 pg (25.7-33.7); MCHC 32.8 g/dl (32.0-36.0); MEAN CELL VOLUME 88.1 fl (80-96); MEAN PLT VOLUME 8.1 fl (7.5-11.1); MONO % 7.6 % (3.8-10.2); NEUT % 65.7 % (42.8-82.8); PLATELET COUNT 345 K/MM3 (134-434); RBC 4.27 M/mm3 (3.60-5.2); RDW 14.3 % (11.6-15.6); WHITE BLOOD COUNT 11.2 K/mm3 (4.0-10.0)
[2020-02-12 04:04] LABS: EPI CELLS >36 /uL (0-25.1); HYALINE CASTS 8 /uL (0-3.1); URINE APPEARANCE CLOUDY; URINE BACTERIA 2240 /uL (0-1359); URINE BILIRUBIN NEGATIVE (NEGATIVE); URINE COLOR YELLOW; URINE GLUCOSE (UA) NEGATIVE (NEGATIVE); URINE KETONE NEGATIVE (NEGATIVE); URINE LEUK ESTERASE NEGATIVE (NEGATIVE); URINE NITRITE NEGATIVE (NEGATIVE); URINE PROTEIN TRACE (NEGATIVE); URINE UROBILINOGEN 0.2 mg/dL (0.2-1.0); URINE WBC 43 /uL (0-25.8)
[2020-02-12 04:16] VITALS: BMI 36.6
[2020-02-12 04:28] LABS: ALBUMIN 3.5 g/dl (3.4-5.0); ALK PHOS 53 U/L (45-117); ANION GAP 7 MMOL/L (8-16); BILIRUBIN,TOTAL 0.5 mg/dL (0.2-1); BLOOD UREA NITROGEN 10.8 mg/dL (7-18); CALCIUM 9.1 mg/dL (8.5-10.1); CHLORIDE 106 mmol/L (98-107); CO2 24 mmol/L (21-32); CREATININE 0.9 mg/dL (0.55-1.3); GLUCOSE,RANDOM 120 mg/dL (74-106); POTASSIUM 4.4 mmol/L (3.5-5.1); SGOT/AST 26 U/L (15-37); SGPT/ALT 18 U/L (13-61); SODIUM 138 mmol/L (136-145); TOT PROT 7.4 g/dl (6.4-8.2)
[2020-02-12] MEDS ORDERED: morphine CARPU-JECT 4 MG/1 ML DISP.SYRIN IVPUSH ONE (06:05)
[2020-02-12] MEDS ORDERED: CEFOTETAN DISODIUM 2 GM in DEXTROSE 5%-WATER - 100 ML IVPB ONE (06:58)
[2020-02-12] MEDS ORDERED: HYDROmorphone HCL CARPU-JECT 1 MG/1 ML DISP.SYRIN ONE ×2 (07:09→10:46)
[2020-02-12] MEDS ORDERED: ONDANSETRON 4 MG/2 ML VIAL IVPB PRN (07:11)
[2020-02-12] MEDS ORDERED: HYDROmorphone HCL CARPU-JECT 1 MG/1 ML DISP.SYRIN IVPUSH ONE (07:11)
[2020-02-12] MEDS ORDERED: DEXTROSE 5%-0.45% SALINE 1,000 ML IV SCH (07:15)
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
--- NOTE | 2020-02-12 08:17 | HP ---
CHIEF COMPLAINT: Right lower quadrant pain PCP: HISTORY OF PRESENT ILLNESS: 54 year-old female with a PMH significant for gastritis and iron-deficiency anemia presents to ED with RLQ pain since 9:30pm last night with associated nausea and multiple episodes of vomiting. CT shows acute appendicitis. ER course was notable for: (1) WBC 11.2k (2) CT: acute appendicitis Recent Travel: No PAST MEDICAL HISTORY: Gastritis Iron-deficiency anemia Gestational diabetes PAST SURGICAL HISTORY: Ventral hernia repair Right rotator cuff repair x 2 Right knee meniscus tear C-sections x 3 Tubal ligation Social History: Smoking: current smoker, not every day Alcohol: occasional Drugs: no Family history: reviewed and non-contributory Allergies Penicillins Allergy (Verified 02/12/20 03:50) Rash A CHILD HOME MEDICATIONS: Home Medications Medication Instructions Recorded Lansoprazole [Prevacid] 15 mg PO HS 09/05/18 Ibuprofen [Motrin -] 600 mg PO QID PRN #28 tablet 09/23/18 REVIEW OF SYSTEMS CONSTITUTIONAL: Absent: fever, chills, diaphoresis, generalized weakness, malaise, loss of appetite, weight change HEENT: Absent: rhinorrhea, nasal congestion, throat pain, throat swelling, difficulty swallowing, mouth swelling, ear pain, eye pain, visual changes CARDIOVASCULAR: Absent: chest pain, syncope, palpitations, irregular heart rate, lightheadedness, peripheral edema RESPIRATORY: Absent: cough, shortness of breath, dyspnea with exertion, orthopnea, wheezing, stridor, hemoptysis GASTROINTESTINAL: +RLQ pain, nausea, vomiting Absent: diarrhea, constipation, melena, hematochezia GENITOURINARY: Absent: dysuria, frequency, urgency, hesitancy, hematuria, flank pain, genital pain MUSCULOSKELETAL: Absent: myalgia, arthralgia, joint swelling, back pain, neck pain SKIN: Absent: rash, itching, pallor HEMATOLOGIC/IMMUNOLOGIC: Absent: easy bleeding, easy bruising, lymphadenopathy, frequent infections ENDOCRINE: Absent: unexplained weight gain, unexplained weight loss, heat intolerance, cold intolerance NEUROLOGIC: Absent: headache, focal weakness or paresthesias, dizziness, unsteady gait, seizure, mental status changes, bladder or bowel incontinence PSYCHIATRIC: Absent: anxiety, depression, suicidal or homicidal ideation, hallucinations. PHYSICAL EXAMINATION Vital Signs - 24 hr 06/26/20 06/26/20 06/26/20 03:06 06:02 06:18 Temperature 99.4 F 98.6 F Pulse Rate 109 H Pulse Rate [ 88 Right] Respiratory 22 H 22 H Rate Blood Pressure 151/80 Blood Pressure 112/55 L [Left Arm] O2 Sat by Pulse 100 100 96 Oximetry (%) GENERAL: Awake, alert, and fully oriented, in no acute distress. HEAD: Normal with no signs of trauma. EYES: Pupils equal, round and reactive to light, extraocular movements intact, sclera anicteric, conjunctiva clear. No lid lag. LUNGS: Breath sounds equal, clear to auscultation bilaterally. No wheezes, and no crackles. No accessory muscle use. HEART: Regular rate and rhythm, normal S1 and S2 without murmur, rub or gallop. ABDOMEN: Soft, not distended, RLQ tenderness MUSCULOSKELETAL: Normal range of motion at all joints. No bony deformities or tenderness. No CVA tenderness. UPPER EXTREMITIES: 2+ pulses, warm, well-perfused. No cyanosis. No clubbing. No peripheral edema. LOWER EXTREMITIES: 2+ pulses, warm, well-perfused. No calf tenderness. No peripheral edema. NEUROLOGICAL: Cranial nerves II-XII intact. Normal speech. Laboratory Results - last 24 hr 02/12/20 02/12/20 02/12/20 03:20 03:20 03:20 WBC 11.2 H RBC 4.27 Hgb 12.3 Hct 37.7 D MCV 88.1 MCH 28.9 MCHC 32.8 RDW 14.3 Plt Count 345 MPV 8.1 Absolute Neuts (auto) 7.4 Neutrophils % 65.7 D Lymphocytes % 25.2 D Monocytes % 7.6 Eosinophils % 0.7 Basophils % 0.8 Nucleated RBC % 0 Sodium 138 Potassium 4.4 Chloride 106 Carbon Dioxide 24 Anion Gap 7 L BUN 10.8 Creatinine 0.9 Est GFR (CKD-EPI)AfAm 85.20 Est GFR (CKD-EPI)NonAf 73.51 Random Glucose 120 H Calcium 9.1 Total Bilirubin 0.5 AST 26 ALT 18 Alkaline Phosphatase 53 Total Protein 7.4 Albumin 3.5 Beta HCG, Quant < 1.0 Urine Color Yellow Urine Appearance Cloudy Urine pH 5.0 Ur Specific [place] 1.029 Urine Protein Trace Urine Glucose (UA) Negative Urine Ketones Negative Urine Blood 2+ H Urine Nitrite Negative Urine Bilirubin Negative Urine Urobilinogen 0.2 Ur Leukocyte Esterase Negative Urine WBC (Auto) 43 Urine Casts (Auto) 8 U Epithel Cells (Auto) >36 Urine Bacteria (Auto) 2240 ASSESSMENT/PLAN: 54 year-old female with a PMH significant for gastritis and iron-deficiency anemia. Admitted for acute appendicitis. Acute appendicitis --CT: acute appendicitis --afebrile, mild leukocytosis; cefotetan x 1 given in ED; perioperative antibiotics per surgery --plan is to OR today with Dr. Worrell --NPO --pain management --COVID swab pending Pyuria --culture pending Dispo: awaiting transport to [facility] for OR today. Full code. Visit type - Emergency Visit Emergency Visit: Yes Care time: The patient presented to the Emergency Department on the above date and was hospitalized for further evaluation of their emergent condition. - New Patient This patient is new to me today: Yes Date on this admission: 02/12/20 - Critical Care Critical Care patient: No
[2020-02-12] MEDS ORDERED: HYDROmorphone HCL CARPU-JECT 1 MG/1 ML DISP.SYRIN IVPUSH PRN (09:37)
[2020-02-12] MEDS ORDERED: morphine SULFATE 4 MG/ML VIAL IVPUSH PRN (10:00)
[2020-02-12] MEDS ORDERED: DEXAMETHASONE SOD PHOSPHATE 4 MG/1 ML VIAL ONE (10:37)
[2020-02-12] MEDS ORDERED: LIDOCAINE HCL/PF 2% SDV 5ML VIAL ONE (10:37)
[2020-02-12] MEDS ORDERED: SUCCINYLCHOLINE CHLORIDE 200 MG/10 ML SYRINGE ONE (10:38)
[2020-02-12] MEDS ORDERED: PROPOFOL 20 ML ONE (10:38)
[2020-02-12] MEDS ORDERED: MIDAZOLAM HCL 2 MG/2 ML SINGLE DOSE VIAL ONE (10:39)
[2020-02-12] MEDS ORDERED: ROCURONIUM BROMIDE 50 MG/5 ML SYRINGE ONE (10:39)
[2020-02-12] MEDS ORDERED: ONDANSETRON 4 MG/2 ML VIAL IVPUSH PRN ×2 (11:09→12:03)
[2020-02-12] MEDS ORDERED: LACTATED RINGERS SOLUTION 1,000 ML IV SCH (11:15)
[2020-02-12] MEDS ORDERED: morphine SULFATE 4 MG/ML VIAL IVPB PRN (12:03)
[2020-02-12] MEDS ORDERED: ACETAMINOPHEN 325 MG TABLET (FP) PO PRN (12:03)
--- NOTE | 2020-02-12 12:08 | OP ---
Operative Note - Note: Operative Date: 02/12/20 Pre-Operative Diagnosis: acute appendicitis Operation: laparoscopic appendectomy, exstensive lysis of adhesions, small bowel resection, lavage Findings: large intra-abdominal mesh with exstensive adhesions of small bowel and appendix to mesh, non perforated appendix Post-Operative Diagnosis: Same as Pre-op Surgeon: Denton Worrell Anesthesiologist/CLINIC OFFICE COORDINATOR: Elza Lamb Anesthesia: General Specimens Removed: appendix Estimated Blood Loss (mls): 10 Drains & Tubes with Location: none Operative Report Dictated: Yes
[2020-02-12] MEDS ORDERED: GLYCOPYRROLATE 0.2 MG/1 ML VIAL ONE (12:15)
[2020-02-12] MEDS ORDERED: NEOSTIGMINE METHYLSULFATE 0.5 MG/ML - 10 ML MDV ONE (12:15)
--- NOTE | 2020-02-12 13:14 | EKG ---
Test Reason : Blood Pressure : / mmHG Vent. Rate : 082 BPM Atrial Rate : 082 BPM P-R Int : 154 ms QRS Dur : 082 ms QT Int : 382 ms P-R-T Axes : 042 037 026 degrees QTc Int : 446 ms NORMAL SINUS RHYTHM NORMAL ECG WHEN COMPARED WITH ECG OF 18-JUN-2018 10:01, NO SIGNIFICANT CHANGE WAS FOUND Confirmed by MARTINA PEÑA MD ([id number]) on 02/12/2020 1:13:56 PM Referred By: Confirmed By:MARTINA PEÑA MD
[2020-02-12] MEDS: ERTAPENEM SODIUM 1 GM in SODIUM CHLORIDE 50 ML IVPB SCH (16:05)
[2020-02-12] MEDS ORDERED: ERTAPENEM SODIUM 1 GM VIAL IVPB ONE (16:05)
[2020-02-12] MEDS: D5-1/2NS+20 MEQ KCL - 20 MEQ/1,000 ML INFUS.BAG IV SCH (17:04)
[2020-02-12] MEDS: MORPHINE SULFATE 2 MG/ML VIAL IVPB PRN (21:18)
[2020-02-13] MEDS: oxyCODONE HCL 5 MG TABLET PO PRN (01:54)
[2020-02-13] MEDS: D5-1/2NS+20 MEQ KCL - 20 MEQ/1,000 ML INFUS.BAG IV SCH ×3 (05:06→15:58)
[2020-02-13] MEDS: MORPHINE SULFATE 2 MG/ML VIAL IVPB PRN ×2 (08:07→11:47)
[2020-02-13 09:02] LABS: BASO % 0.2 % (0-2.0); EOS % 0.1 % (0-4.5); HEMATOCRIT 31.7 % (32.4-45.2); HEMOGLOBIN 10.3 GM/dL (10.7-15.3); LYMPH % 20.2 % (8-40); MCH 28.8 pg (25.7-33.7); MCHC 32.4 g/dl (32.0-36.0); MEAN CELL VOLUME 88.9 fl (80-96); MONO % 7.8 % (3.8-10.2); NEUT % 71.7 % (42.8-82.8); PLATELET COUNT 275 K/MM3 (134-434); RBC 3.56 M/mm3 (3.60-5.2); RDW 14.6 % (11.6-15.6); WHITE BLOOD COUNT 9.8 K/mm3 (4.0-10.0)
[2020-02-13] MEDS: PANTOPRAZOLE SODIUM 40 MG VIAL IVPUSH SCH (09:19)
[2020-02-13] MEDS: ENOXAPARIN NA (PORCINE) 40 MG/0.4 ML DISP.SYRIN SQ SCH (09:19)
[2020-02-13 09:20] LABS: PHOSPHOROUS 3.1 mg/dL (2.5-4.9)
--- NOTE | 2020-02-13 09:26 | PN ---
Physical Exam: SUBJECTIVE: Patient seen and examined at bedside this morning. Patient came to the ED with RLQ pain and was found to have acute appendicitis. Patient subsequently underwent laparoscopy appendectomy, extensive lysis adhesion, small bowel resection. Patient reports diffuse abdominal pain, worse on the right. She is able to walk to the bathroom to urinate, but has not passed gas or had a bowel movement. Patient denies fevers, chills, headache, dizziness, chest pain, SOB, urinary symptoms. OBJECTIVE: Vital Signs Temperature 99.7 F H 02/13/20 05:41 Pulse Rate 71 02/13/20 05:41 Respiratory Rate 02/13/20 05:41 Blood Pressure 100/58 L 02/13/20 05:41 O2 Sat by Pulse Oximetry (%) 95 02/12/20 21:00 GENERAL: The patient is awake, alert, and fully oriented, in no acute distress. HEAD: Normal with no signs of trauma. EYES: PERRLA, EOMI, sclera anicteric, conjunctiva clear. ENT: dry mucous membranes. NECK: Trachea midline, full range of motion, supple. LUNGS: Decreased breath sounds on bilateral bases HEART: Regular rate and rhythm, S1, S2 ABDOMEN: Soft, +diffuse tenderness, worse on RLQ/RUQ, nondistended, normoactive bowel sounds. EXTREMITIES: 2+ pulses, warm, well-perfused, no edema. NEUROLOGICAL: Cranial nerves II through XII grossly intact. Normal speech PSYCH: Normal mood, normal affect. SKIN: Warm, dry, normal turgor, no rashes or lesions noted Laboratory Results - last 24 hr 02/12/20 03:20 U Pathogenic Cast Auto Negative Active Medications Generic Name Dose Route Start Last Admin Trade Name Freq PRN Reason Stop Dose Admin Acetaminophen 650 mg 02/12/20 12:03 Tylenol - PO Q4H PRN FEVER Enoxaparin Sodium 40 mg 02/13/20 10:00 Lovenox - SQ DAILY RAUL Fentanyl 25 mcg 02/12/20 11:09 Sublimaze Injection - IVPUSH [id number] PRN PAIN-PACU ORDER X 4 DOSES ONLY Potassium Chloride/Dextrose/Sod Cl 20 meq in 1,000 mls @ 100 mls/hr 02/12/20 12:15 02/13/20 05:06 D5-1/2ns+20 Meq Kcl - IV 100 mls/hr ASDIR RAUL Administration Ertapenem 1 gm/ Sodium 50 mls @ 50 mls/hr 02/12/20 16:00 02/12/20 16:05 Chloride IVPB 50 mls/hr DAILY RAUL Administration Morphine Sulfate 8 mg 02/12/20 17:23 02/13/20 08:07 Morphine Sulfate IVPB 8 mg Q3H PRN Administration PAIN LEVEL 7 - 10 Ondansetron HCl 4 mg 02/12/20 12:03 Zofran Injection IVPUSH Q6H PRN NAUSEA Oxycodone HCl 7.5 mg 02/12/20 12:03 02/13/20 01:54 Roxicodone - PO 7.5 mg Q4H PRN Administration PAIN LEVEL 4 - 6 Pantoprazole Sodium 40 mg 02/13/20 10:00 Protonix Iv IVPUSH DAILY RAUL ASSESSMENT/PLAN: Patient is a 54 year-old female with past medical history of gastritis and iron- deficiency anemia. Patient admitted for acute appendicitis and subsequently underwent lap appendectomy. #Acute appendicitis -POD 1 laparoscopy appendectomy, extensive lysis adhesion, small bowel resection, lavage -continue NPO, advance diet as per surgery -continue IVF -pain control with Morphine and Oxycodone -Continue Ertapenem 1gm daily -Zofran prn for nausea -Surgery (Dr. Worrell) consulted. Recommendations appreciated. #Normocytic anemia -Hgb dropped from 12.3 to 10.3, likely 2/2 post-op blood loss and hemodilution from IVF -will continue to monitor H/H -will order iron studies #Aysmptomatic bacteriuria -Urine culture pending -On Ertapenem for the post-op surgery #FEN -IV D5-1/2NS +20meq KCL @100 -Electrolytes wnl, routine bmp monitoring -NPO #Prophylaxis -Lovenox 40mg sq daily #Disposition -full code -continue to monitor on med surg Visit type - Emergency Visit Emergency Visit: Yes ED Registration Date: 02/12/20 Care time: The patient presented to the Emergency Department on the above date and was hospitalized for further evaluation of their emergent condition. - New Patient This patient is new to me today: Yes Date on this admission: 02/13/20 - Critical Care Critical Care patient: No ATTENDING PHYSICIAN STATEMENT I saw and evaluated the patient. I reviewed the resident's note and discussed the case with the resident. I agree with the resident's findings and plan as documented. SUBJECTIVE: OBJECTIVE: ASSESSMENT AND PLAN:
[2020-02-13 09:32] LABS: BLOOD UREA NITROGEN 6.4 mg/dL (7-18); CALCIUM 8.2 mg/dL (8.5-10.1); CREATININE 0.8 mg/dL (0.55-1.3); POTASSIUM 3.9 mmol/L (3.5-5.1)
--- NOTE | 2020-02-13 10:58 | CONS ---
DATE OF CONSULTATION: 02/12/2020 REASON FOR CONSULT: Acute appendicitis. This is an emergency consultation with the emergency room physician. 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 She had a CAT scan of her abdomen and pelvis which was consistent with acute appendicitis, uncomplicated. Her white blood cell count was mildly elevated, and her chemistries were unremarkable. She had no fever but had significant abdominal pain. At [facility] there was no ability to get a COVID test in less than 24 hours. Usually it takes 36-72 hours. Furthermore, you are unable to operate at the [facility] if a patient's COVID status is not known. Also unable to operate on nights and weekends. Therefore, the patient was transferred to [facility] with plans made for surgery. PAST MEDICAL HISTORY: Negative. PAST SURGICAL HISTORY: Significant for a ventral hernia repair, on CAT scan appears to be laparoscopic, probably intraabdominal mesh placement. She also has history of 3 sections. SOCIAL HISTORY: Positive for tobacco. She has been encouraged to quit. ALLERGIES: PENICILLIN. She has currently been given cefotetan by the emergency room physician. MEDICATIONS: She takes no medications. FAMILY HISTORY: Negative for much in the immediate family. REVIEW OF SYSTEMS: General: Denies fatigue or malaise. Cardiac: Denies chest pain or palpitations. Respiratory: Denies shortness of breath or wheeze. Gastrointestinal: No nausea, no vomiting, no diarrhea, no blood in her stool, no recent weight loss. Admits to lower abdominal pain. Genitourinary: Denies dysuria. Musculoskeletal: Denies joint pain. Psychiatric: Denies anxiety, depression, hearing voices. PHYSICAL EXAMINATION: General: This is an obese 54-year-old female in no distress. Vital Signs: She is afebrile. Vital signs are stable. HEENT: Head is normocephalic. Her sclerae are anicteric. Neck: Supple. Chest: Clear. Abdomen: Soft. She has localized right lower quadrant tenderness. She has a well-healed Pfannenstiel incision. She has no obvious masses, no obvious hernias. Her exam is limited by obesity. Extremities: Have trace edema. LABORATORY: White blood cell count is 11.2. There is no shift. Her chemistry is unremarkable. Urinalysis shows 2+ blood, which that lab abnormality is being managed by the medical service. She is also noted to have bacteria, white blood cells suggestive of a possible urinary tract infection. Again, that will not be managed by the general surgery service. IMAGING: She has a CAT scan of her abdomen and pelvis with findings consistent with acute, uncomplicated appendicitis. No kidney stones were noted. ASSESSMENT: Ozb[place]-pgw-gito-old female with right lower quadrant/right flank pain, elevated white blood cell count, right lower quadrant tenderness with rebound, and CAT scan findings consistent with acute appendicitis. Clinically, this is acute appendicitis. I agree with admission. I agree with IV antibiotics. Patient has been offered surgical versus medical management, prefers surgical management because of her persistent pain. She prefers the definitive nature of surgery, likely decreased length of stay, the ability to pathologically evaluate the appendix, and prevention of future recurrence. Risks and benefits of surgery have been explained to the patient in detail. These are including but not limited to the possibility of conversion to open, the possibility of injury to viscera or bladder, the possibility of blood loss requiring transfusion, possibility of future obstruction, possibility of future hernia, plus multiple medical risks including but not limited to cardiac, neurologic, pulmonary, and vascular complications, even . Patient understands these risks and is agreeable to surgery. She understands that she does not have any new or active COVID test and that if she does indeed have active COVID virus that she will be at increased risk of respiratory failure and thromboembolic events and even . She states that she has tested positive for the antibodies in the past and that she does not have COVID and she wishes to proceed with surgery. She understands that she can wait for the next 1-3 days to see if her tests come back and be treated medically, but she instead insists on proceeding with surgery. DO ODELL VILLALOBOS/[id number]
[2020-02-13] MEDS: ERTAPENEM SODIUM 1 GM in SODIUM CHLORIDE 50 ML IVPB SCH (11:19)
--- NOTE | 2020-02-13 13:02 | OP ---
DATE OF OPERATION: 02/12/2020 PREOPERATIVE DIAGNOSIS: Acute appendicitis. POSTOPERATIVE DIAGNOSIS: Acute appendicitis. PROCEDURE: Laparoscopic appendectomy, extensive lysis of adhesions, laparoscopic small-bowel resection, lavage. SURGEON: Denton Worrell DO FILAMENT SHAPER: None. ANESTHESIOLOGIST: Elza Lamb MD INTRAOPERATIVE FINDINGS: An intraabdominal large surgical mesh with extensive adhesions of small bowel, cecum, and appendix to the mesh. BLOOD LOSS: Minimal. DRAINS: None. SPECIMEN: Appendix and a portion of small bowel. DISPOSITION: Recovery in stable condition. BRIEF HISTORY: This is a 54-year-old female who presented to [facility] with complaints of right flank and lower quadrant abdominal pain. CAT scan was consistent with acute appendicitis. She had a history of a previous abdominal hernia repair as well as multiple sections. She presents now for appendectomy. DESCRIPTION OF PROCEDURE: The patient was placed in supine position. After general anesthesia was initiated, the abdomen was prepped, draped in sterile fashion. A De Luna catheter was inserted. Next, a vertical incision was made supraumbilical with scalpel used to go through skin and subcutaneous tissue. The fascia was identified. It was incised vertically. Two sutures were placed on either side. Under the fascia was noted to be mesh, appeared to be a [place]debayo mesh. This, too, was incised vertically, and a stitch was placed on either side of the mesh. The peritoneum underneath this was divided under direct visualization. Finger sweep noted there to be multiple adhesions in the area. A Oksana trocar was slid into this space and pneumoperitoneum was created. The patient was noted to have several loops of small bowel and colon in the right lower quadrant adhesed to this mesh. In the left lower quadrant there were no adhesions noted. A trocar was placed in the left lower quadrant, 5 mm in size, as well as one suprapubic and one in the left upper quadrant. The camera was switched laterally. Attempt was now made to take down these adhesions in order to identify the appendix. There were multiple adhesions of small bowel to small bowel as well as small bowel to the [place]-Adebayo mesh. This was taken down with a combination of sharp dissection as well as LigaSure device. The cecum and appendix were also noted to be involved in it as well. During the process of taking down these extensive adhesions, the patient developed a deserosalization which became full thickness. This part of the small bowel was identified. The remainder of the bowel appeared viable. At this point, with all the adhesions taken down, the appendix was identified. The LigaSure device was used to divide the mesoappendix in multiple welds. The appendix was thickened and inflamed but nonperforated. An Endo EVE purple load 45-mm stapler was used to divide the appendix at its base in 1 firing. The staple line was inspected, was intact. There was no bleeding, no breaks, no sign of ischemia. The appendix was then placed in a specimen bag. At this point, the bowel with the noted enterotomy was identified, and a bowel clamp was used to grasp it. The supraumbilical incision was lengthened through the umbilicus to approximately 4 cm in length. A wound protector was placed in this location. The appendix in a specimen bag, followed by the small bowel, were delivered through the wound protector. The small bowel was identified. Decision was made to do a resection of this segment. A 1-inch segment was resected, with a xdfo-xm-uvyo anastomosis being done with a EVE 80 blue load stapler. The enterotomy from the stapling device was closed with a TA60 blue load stapler. The isaiah were inspected. They were intact. No bleeding, no breaks, no sign of ischemia. The anastomosis was felt to be patent. It was adequate size. Succus could pass from proximal to distal and distal to proximal. The mesenteric defect was closed with a running chromic suture. There was no bleeding noted. At this point, the bowel was placed back into the abdominal cavity through the wound protector. The abdominal cavity was then irrigated. The purpose of the wound protector was to try to prevent any contamination on the mesh which was transected in order to do the operation. At this point trocars were removed under visualization. No bleeding was noted. The mesh as well as the fascia was closed with multiple interrupted 0 PDS sutures. The 4 skin incisions were closed with Biosyn. Dermabond dressing was placed. Overall, the patient tolerated the procedure well. De Luna catheter placed at the beginning of the operation was removed at the end. Patient's plan was to go to the recovery room where she would be admitted to the hospital, receive IV antibiotics to prophylax the mesh and treat for appendicitis and await return of bowel function. DO ODELL VILLALOBOS/[id number] MTDMelvin
--- NOTE | 2020-02-13 13:09 | PN ---
Teaching Attending Note Name of Resident: Nahomi Mello ATTENDING PHYSICIAN STATEMENT I saw and evaluated the patient. I reviewed the resident's note and discussed the case with the resident. I agree with the resident's findings and plan as documented. SUBJECTIVE: Seen and examined at bedside. Patient reports she may have passed gas but is not sure. Reports significant pain status post surgery. Pain regimen increased by surgical team OBJECTIVE: Last Vital Signs Temp Pulse Resp BP Pulse Ox 98.3 F 72 18 130/68 97 02/13/20 10:02/13/20 10:02/13/20 10:02/13/20 10:02/13/20 09:00 PE: per resident note Labs/Imaging: reviewed ASSESSMENT AND PLAN: 54-year-old female past medical history of gastritis, iron deficiency anemia, prior hernia repair, presents with acute appendicitis. Patient under went laparoscopic appendectomy with extensive adhesions to mesh requiring small bowel resection and lavage. #Acute appendicitis Surgery on board: Appreciate recommendations Pain control with morphine and oxycodone Continue n.p.o., advance diet per surgery IV fluids Ertapenem 1 g daily per surgery #Acute blood loss anemia Likely due to surgery plus fluids Trend H&H #Asymptomatic bacteriuria Urinalysis was contaminated with epithelial cells. Culture is likely contaminated No antibiotic treatment required
--- NOTE | 2020-02-13 14:38 | PN ---
Progress Note (short form) - Note Progress Note: surgery pt seen and examined. feels sore. asked for food. oob. voiding afebrile, abd- soft, mild distension, upper abd tenderness without guarding, incision clean Selected Entries 02/13/20 05:41 Temperature 99.7 F H Laboratory Tests 02/13/20 08:00 WBC 9.8 A/P 1) Pod#1- cont npo, ivf, 2) prophylaxis- lovenox, protonix, oob, spirometer 3) s/p small bowel resection and appendectomy- follow path, keep npo until Saturday at earliest. will need to be on liquid diet for minimum one week. do not advance diet until ok'd by surgery 4) pain- morphine, caldolor, percocet 5) possible mesh contamination- cont invanz. surgical service will re-eval Saturday for advancement of diet.
--- NOTE | 2020-02-13 14:48 | PN ---
Progress Note (short form) - Note Progress Note: 54F POD#1 for lap appendectomy, NATALIA and small bowel resection under GETA. Patient doing well this afternoon. No anesthesia related complications. C/w current management per primary team.
[2020-02-13] MEDS: IBUPROFEN 800 MG/8 ML IJ IVPB PRN ×2 (15:51→22:37)
[2020-02-14 07:18] LABS: BASO % 0.9 % (0-2.0); EOS % 1.7 % (0-4.5); HEMATOCRIT 32.1 % (32.4-45.2); HEMOGLOBIN 10.5 GM/dL (10.7-15.3); LYMPH % 33.6 % (8-40); MCH 28.9 pg (25.7-33.7); MCHC 32.7 g/dl (32.0-36.0); MEAN CELL VOLUME 88.3 fl (80-96); MEAN PLT VOLUME 7.9 fl (7.5-11.1); MONO % 11.5 % (3.8-10.2); NEUT % 52.3 % (42.8-82.8); PLATELET COUNT 283 K/MM3 (134-434); RBC 3.63 M/mm3 (3.60-5.2); RDW 14.4 % (11.6-15.6); WHITE BLOOD COUNT 6.5 K/mm3 (4.0-10.0)
[2020-02-14 07:28] LABS: ALBUMIN 2.7 g/dl (3.4-5.0); BILIRUBIN,TOTAL 0.6 mg/dL (0.2-1); CALCIUM 8.2 mg/dL (8.5-10.1); CREATININE 0.8 mg/dL (0.55-1.3); MAGNESIUM 2.1 mg/dL (1.8-2.4); TOT PROT 5.7 g/dl (6.4-8.2)
[2020-02-14] MEDS: PANTOPRAZOLE SODIUM 40 MG VIAL IVPUSH SCH (09:39)
[2020-02-14] MEDS: ENOXAPARIN NA (PORCINE) 40 MG/0.4 ML DISP.SYRIN SQ SCH (09:39)
[2020-02-14] MEDS: IBUPROFEN 800 MG/8 ML IJ IVPB PRN (09:55)
[2020-02-14] MEDS: ERTAPENEM SODIUM 1 GM in SODIUM CHLORIDE 50 ML IVPB SCH (10:47)
--- NOTE | 2020-02-14 14:40 | PN ---
Teaching Attending Note Name of Resident: Pankaj Leon ATTENDING PHYSICIAN STATEMENT I saw and evaluated the patient. I reviewed the resident's note and discussed the case with the resident. I agree with the resident's findings and plan as documented. SUBJECTIVE: Seen and examined at bedside. Pain better controlled today. Remains NPO until tomorrow. OBJECTIVE: Last Vital Signs Temp Pulse Resp BP Pulse Ox 98.7 F 69 20 119/60 97 02/14/20 06:00 02/14/20 06:00 02/14/20 06:00 02/14/20 06:00 02/14/20 09:00 PE: per resident note Labs/Imaging: reviewed ASSESSMENT AND PLAN: 54-year-old female past medical history of gastritis, iron deficiency anemia, prior hernia repair, presents with acute appendicitis. Patient under went laparoscopic appendectomy with extensive adhesions to mesh requiring small bowel resection and lavage. #Acute appendicitis Surgery on board: Appreciate recommendations Pain control with morphine and oxycodone Continue n.p.o., advance diet per surgery IV fluids Ertapenem 1 g daily per surgery #Acute blood loss anemia Likely due to surgery plus fluids Trend H&H #Asymptomatic bacteriuria Urinalysis was contaminated with epithelial cells. Culture is likely contaminated No antibiotic treatment required
--- NOTE | 2020-02-14 17:06 | PN ---
Physical Exam: SUBJECTIVE: Patient seen and examined at the bedside, passes gas, no BMs, endorses abdominal pain OBJECTIVE: Vital Signs Period Temp Pulse Resp BP Sys/[place] Pulse Ox Last 24 Hr 98.3 F-99 F 68-77 18-20 114-137/58-70 95-97 GENERAL: The patient is awake, alert, and fully oriented, in no acute distress. HEAD: Normal with no signs of trauma. EYES: PERRLA, EOMI, sclera anicteric, conjunctiva clear. ENT: dry mucous membranes. NECK: Trachea midline, full range of motion, supple. LUNGS: Decreased breath sounds on bilateral bases HEART: Regular rate and rhythm, S1, S2 ABDOMEN: Soft, suprapubic and epigastric tenderness EXTREMITIES: 2+ pulses, warm, well-perfused, no edema. NEUROLOGICAL: Cranial nerves II through XII grossly intact. Normal speech PSYCH: Normal mood, normal affect. SKIN: Warm, dry, normal turgor, no rashes or lesions noted Laboratory Results - last 24 hr 02/12/20 02/14/20 02/14/20 06:30 06:25 06:25 WBC 6.5 RBC 3.63 Hgb 10.5 L Hct 32.1 L MCV 88.3 MCH 28.9 MCHC 32.7 RDW 14.4 Plt Count 283 MPV 7.9 Absolute Neuts (auto) 3.4 Neutrophils % 52.3 D Lymphocytes % 33.6 D Monocytes % 11.5 H Eosinophils % 1.7 D Basophils % 0.9 D Nucleated RBC % 0 Sodium 143 Potassium 4.0 Chloride 108 H Carbon Dioxide 32 Anion Gap 3 L BUN 5.0 L Creatinine 0.8 Est GFR (CKD-EPI)AfAm 98.24 Est GFR (CKD-EPI)NonAf 84.76 Random Glucose 88 Calcium 8.2 L Phosphorus 3.0 Magnesium 2.1 Total Bilirubin 0.6 AST 14 L ALT 13 Alkaline Phosphatase 41 L Total Protein 5.7 L Albumin 2.7 L COVID-19 ([facility]) Not detected Active Medications Generic Name Dose Route Start Last Admin Trade Name Freq PRN Reason Stop Dose Admin Acetaminophen 650 mg 02/12/20 12:03 Tylenol - PO Q4H PRN FEVER Enoxaparin Sodium 40 mg 02/13/20 10:00 02/14/20 09:39 Lovenox - SQ 40 mg DAILY RAUL Administration Fentanyl 25 mcg 02/12/20 11:09 Sublimaze Injection - IVPUSH [id number] PRN PAIN-PACU ORDER X 4 DOSES ONLY Potassium Chloride/Dextrose/Sod Cl 20 meq in 1,000 mls @ 100 mls/hr 02/12/20 12:15 02/13/20 15:58 D5-1/2ns+20 Meq Kcl - IV 100 mls/hr ASDIR RAUL Administration Ertapenem 1 gm/ Sodium 50 mls @ 50 mls/hr 02/12/20 16:00 02/14/20 10:47 Chloride IVPB 50 mls/hr DAILY RAUL Administration Ibuprofen 800 mg 02/13/20 14:38 02/14/20 09:55 Caldolor Injection - IVPB 800 mg Q6H PRN Administration PAIN LEVEL 1 - 3 Morphine Sulfate 8 mg 02/12/20 17:23 02/13/20 11:47 Morphine Sulfate IVPB 8 mg Q3H PRN Administration PAIN LEVEL 7 - 10 Ondansetron HCl 4 mg 02/12/20 12:03 Zofran Injection IVPUSH Q6H PRN NAUSEA Oxycodone HCl 7.5 mg 02/12/20 12:03 02/13/20 01:54 Roxicodone - PO 7.5 mg Q4H PRN Administration PAIN LEVEL 4 - 6 Pantoprazole Sodium 40 mg 02/13/20 10:00 02/14/20 09:39 Protonix Iv IVPUSH 40 mg DAILY RAUL Administration ASSESSMENT/PLAN: Patient is a 54 year-old female with past medical history of gastritis and iron- deficiency anemia. Patient admitted for acute appendicitis and subsequently underwent lap appendectomy. #Acute appendicitis - s/p Lap Appe + SB resection (02/10) - NPO, advance tomorrow as per surgery - Morphine and Oxycodone, Zofran for nausea - Continue Ertapenem 1gm #Normocytic anemia - Likely 2/2 post-op blood loss and hemodilution from IVF - Continue to monitor #Aysmptomatic bacteriuria - Pending Ucx, on Ertapenem #FEN - IV D5-1/2NS +20meq KCL @100 - NPO -> Clears tomorrow #Prophylaxis -Lovenox 40mg #Disposition - Will try clears tomorrow AM Visit type - Emergency Visit Emergency Visit: No - New Patient This patient is new to me today: No - Critical Care Critical Care patient: No ATTENDING PHYSICIAN STATEMENT I saw and evaluated the patient. I reviewed the resident's note and discussed the case with the resident. I agree with the resident's findings and plan as documented. SUBJECTIVE: OBJECTIVE: ASSESSMENT AND PLAN:
[2020-02-14] MEDS: D5-1/2NS+20 MEQ KCL - 20 MEQ/1,000 ML INFUS.BAG IV SCH (20:38)
[2020-02-14] MEDS: MORPHINE SULFATE 2 MG/ML VIAL IVPB PRN (22:41)
[2020-02-15] MEDS: MORPHINE SULFATE 2 MG/ML VIAL IVPB PRN ×2 (02:41→18:57)
[2020-02-15] MEDS: D5-1/2NS+20 MEQ KCL - 20 MEQ/1,000 ML INFUS.BAG IV SCH ×2 (02:45→18:48)
[2020-02-15 08:23] LABS: BASO % 0.5 % (0-2.0); HEMATOCRIT 36.4 % (32.4-45.2); HEMOGLOBIN 11.6 GM/dL (10.7-15.3); LYMPH % 39.1 % (8-40); MCH 28.3 pg (25.7-33.7); MCHC 31.9 g/dl (32.0-36.0); MEAN CELL VOLUME 88.7 fl (80-96); MEAN PLT VOLUME 7.8 fl (7.5-11.1); MONO % 9.5 % (3.8-10.2); NEUT % 47.9 % (42.8-82.8); PLATELET COUNT 312 K/MM3 (134-434); WHITE BLOOD COUNT 6.9 K/mm3 (4.0-10.0)
--- NOTE | 2020-02-15 08:40 | PN ---
Teaching Attending Note Name of Resident: Nahomi Mello ATTENDING PHYSICIAN STATEMENT I saw and evaluated the patient. I reviewed the resident's note and discussed the case with the resident. I agree with the resident's findings and plan as documented. SUBJECTIVE: Seen and examined at bedside. Pain is significantly improved. Exam with interval improvement in tenderness. Patient has been ambulating to the bathroom and is passing flatus. Per surgery should be kept n.p.o. 1 additional day, to start full liquids tomorrow OBJECTIVE: Last Vital Signs Temp Pulse Resp BP Pulse Ox 98.8 F 65 20 120/53 L 95 02/15/20 06:12 02/15/20 06:12 02/15/20 06:12 02/15/20 06:12 02/14/20 19:46 PE: per resident note Labs/Imaging: reviewed ASSESSMENT AND PLAN: 54-year-old female past medical history of gastritis, iron deficiency anemia, prior hernia repair, presents with acute appendicitis. Patient under went laparoscopic appendectomy with extensive adhesions to mesh requiring small bowel resection and lavage. #Acute appendicitis Surgery on board: Appreciate recommendations Pain control with morphine and oxycodone Continue n.p.o., advance diet per surgery IV fluids #Acute blood loss anemia Likely due to surgery plus fluids Trend H&H #Asymptomatic bacteriuria Urinalysis was contaminated with epithelial cells. Culture is likely contaminated No antibiotic treatment required
[2020-02-15] MEDS ORDERED: PT OWN MED DRAWER 7, Y5N ONE (08:48)
[2020-02-15 08:55] LABS: ALBUMIN 2.9 g/dl (3.4-5.0); BILIRUBIN,TOTAL 0.3 mg/dL (0.2-1); BLOOD UREA NITROGEN 3.8 mg/dL (7-18); CREATININE 0.9 mg/dL (0.55-1.3); MAGNESIUM 2.2 mg/dL (1.8-2.4); PHOSPHOROUS 4.3 mg/dL (2.5-4.9); TOT PROT 6.5 g/dl (6.4-8.2)
[2020-02-15] MEDS: ENOXAPARIN NA (PORCINE) 40 MG/0.4 ML DISP.SYRIN SQ SCH (10:11)
[2020-02-15] MEDS: PANTOPRAZOLE SODIUM 40 MG VIAL IVPUSH SCH (10:11)
[2020-02-15] MEDS: ERTAPENEM SODIUM 1 GM in SODIUM CHLORIDE 50 ML IVPB SCH (11:18)
--- NOTE | 2020-02-15 11:27 | PN ---
Progress Note (short form) - Note Progress Note: Surgery POD #3 laparoscopic appendectomy, exstensive lysis of adhesions, small bowel resection, lavage.Patient seen and examined on AM rounds with no complaints. She has been OOB ambulating to bathroom to void and passing flatus. She denies any CP, SOB, N/V/D, fever or chills. Vital Signs Period Temp Pulse Resp BP Sys/[place] Pulse Ox Last 24 Hr 98.2 F-98.8 F 65-73 18-20 105-133/53-74 95 CBC, BMP 02/15/20 07:50 02/15/20 07:45 PE: A&Ox3, NAD Unlabored resp on RA ABD: Obese, ND, soft with mild TTP at port sites. incisions c/d/i with surroundi ng tissue intact with no tracking erythema or evidence of collection or d/c. B/L LE compartments soft, NT with +2 DP pulses Problem List - Problems (1) Status post laparoscopic appendectomy Assessment/Plan: POD #3 patient doing well 1) Cont NPO/IVF 2) prophylaxis- lovenox, protonix, oob, spirometer 3) s/p small bowel resection and appendectomy- follow path, keep npo. Patient will need to be on liquid diet for minimum one week. 4) pain- morphine, caldolor, percocet 5) possible mesh contamination- cont invanz. surgical service will re-eval tomorrow for advancement of diet. Evaluation and plan discussed with Dr Braga
--- NOTE | 2020-02-15 12:09 | PN ---
Physical Exam: SUBJECTIVE: Patient seen and examined at bedside this morning. No acute events overnight. Patient reports feeling better, has asked for less pain meds. She reports passing flatus, but has no bowel movements yet. Still reports some abdominal pain, more at the periumblical area. Patient denies fevers, chills, headache, dizziness, chest pain, SOB, diarrhea, urinary symptoms. OBJECTIVE: Vital Signs Temperature 98.8 F 02/15/20 09:34 Pulse Rate 73 02/15/20 09:34 Respiratory Rate 18 02/15/20 09:34 Blood Pressure 133/56 L 02/15/20 09:34 O2 Sat by Pulse Oximetry (%) 95 02/15/20 09:00 GENERAL: The patient is awake, alert, and fully oriented, in no acute distress. HEAD: Normal with no signs of trauma. EYES: PERRLA, EOMI, sclera anicteric, conjunctiva clear. ENT: dry mucous membranes. NECK: Trachea midline, full range of motion, supple. LUNGS: Decreased breath sounds on bilateral bases HEART: Regular rate and rhythm, S1, S2 ABDOMEN: Soft, +periumbilical tenderness, nondistended, normoactive bowel sounds. EXTREMITIES: 2+ pulses, warm, well-perfused, no edema. NEUROLOGICAL: Cranial nerves II through XII grossly intact. Normal speech PSYCH: Normal mood, normal affect. SKIN: Warm, dry, normal turgor, no rashes or lesions noted Laboratory Results - last 24 hr 02/15/20 02/15/20 07:45 07:50 WBC 6.9 RBC 4.10 Hgb 11.6 Hct 36.4 MCV 88.7 MCH 28.3 MCHC 31.9 L RDW 14.0 Plt Count 312 MPV 7.8 Absolute Neuts (auto) 3.3 Neutrophils % 47.9 Lymphocytes % 39.1 Monocytes % 9.5 Eosinophils % 3.0 Basophils % 0.5 Nucleated RBC % 0 Sodium 142 Potassium 4.0 Chloride 104 Carbon Dioxide 31 Anion Gap 7 L BUN 3.8 L Creatinine 0.9 Est GFR (CKD-EPI)AfAm 85.20 Est GFR (CKD-EPI)NonAf 73.51 Random Glucose 89 Calcium 9.0 Phosphorus 4.3 Magnesium 2.2 Total Bilirubin 0.3 AST 13 L ALT 14 Alkaline Phosphatase 46 Total Protein 6.5 Albumin 2.9 L Active Medications Generic Name Dose Route Start Last Admin Trade Name Freq PRN Reason Stop Dose Admin Acetaminophen 650 mg 02/12/20 12:03 Tylenol - PO Q4H PRN FEVER Enoxaparin Sodium 40 mg 02/13/20 10:00 02/15/20 10:11 Lovenox - SQ 40 mg DAILY RAUL Administration Fentanyl 25 mcg 02/12/20 11:09 Sublimaze Injection - IVPUSH [id number] PRN PAIN-PACU ORDER X 4 DOSES ONLY Potassium Chloride/Dextrose/Sod Cl 20 meq in 1,000 mls @ 100 mls/hr 02/12/20 12:15 02/15/20 02:45 D5-1/2ns+20 Meq Kcl - IV 100 mls/hr ASDIR RAUL Administration Ertapenem 1 gm/ Sodium 50 mls @ 50 mls/hr 02/12/20 16:00 02/15/20 11:18 Chloride IVPB 50 mls/hr DAILY RAUL Administration Ibuprofen 800 mg 02/13/20 14:38 02/14/20 09:55 Caldolor Injection - IVPB 800 mg Q6H PRN Administration PAIN LEVEL 1 - 3 Morphine Sulfate 8 mg 02/12/20 17:23 02/15/20 02:41 Morphine Sulfate IVPB 8 mg Q3H PRN Administration PAIN LEVEL 7 - 10 Ondansetron HCl 4 mg 02/12/20 12:03 Zofran Injection IVPUSH Q6H PRN NAUSEA Oxycodone HCl 7.5 mg 02/12/20 12:03 02/13/20 01:54 Roxicodone - PO 7.5 mg Q4H PRN Administration PAIN LEVEL 4 - 6 Pantoprazole Sodium 40 mg 02/13/20 10:00 02/15/20 10:11 Protonix Iv IVPUSH 40 mg DAILY RAUL Administration ASSESSMENT/PLAN: Patient is a 54 year-old female with past medical history of gastritis and iron- deficiency anemia. Patient admitted for acute appendicitis and subsequently underwent lap appendectomy. #Acute appendicitis -POD 3 laparoscopy appendectomy, extensive lysis adhesion, small bowel resection, lavage -continue NPO as per surgery, will re-evaluate tomorrow for advancement of diet -Patient will need to be on liquid diet for minimum one week. -continue IVF -pain control with Morphine, Ibuprofen and Oxycodone -Continue Ertapenem 1gm daily for possible mesh contamination -Zofran prn for nausea -OOB, incentive spirometer -Surgery (Dr. Worrell) consulted. Recommendations appreciated. #Normocytic anemia -likely 2/2 post-op blood loss and hemodilution from IVF, now resolved #Aysmptomatic bacteriuria -Urine culture: Lactobacillus -On Ertapenem for the post-op surgery #FEN -IV D5-1/2NS +20meq KCL @100 -Electrolytes wnl, routine bmp monitoring -NPO #Prophylaxis -Lovenox 40mg sq daily #Disposition -full code -continue to monitor on med surg Visit type - Emergency Visit Emergency Visit: Yes ED Registration Date: 02/12/20 Care time: The patient presented to the Emergency Department on the above date and was hospitalized for further evaluation of their emergent condition. - New Patient This patient is new to me today: No - Critical Care Critical Care patient: No ATTENDING PHYSICIAN STATEMENT I saw and evaluated the patient. I reviewed the resident's note and discussed the case with the resident. I agree with the resident's findings and plan as documented. SUBJECTIVE: OBJECTIVE: ASSESSMENT AND PLAN:
[2020-02-16 08:00] LABS: BASO % 0.5 % (0-2.0); EOS % 3.6 % (0-4.5); HEMATOCRIT 35.1 % (32.4-45.2); HEMOGLOBIN 11.3 GM/dL (10.7-15.3); LYMPH % 35.8 % (8-40); MCH 28.7 pg (25.7-33.7); MCHC 32.3 g/dl (32.0-36.0); MEAN CELL VOLUME 88.6 fl (80-96); MEAN PLT VOLUME 7.9 fl (7.5-11.1); MONO % 12.4 % (3.8-10.2); NEUT % 47.7 % (42.8-82.8); PLATELET COUNT 341 K/MM3 (134-434); RBC 3.96 M/mm3 (3.60-5.2); WHITE BLOOD COUNT 5.7 K/mm3 (4.0-10.0)
[2020-02-16 08:19] LABS: ALBUMIN 2.8 g/dl (3.4-5.0); BILIRUBIN,TOTAL 0.3 mg/dL (0.2-1); BLOOD UREA NITROGEN 4.7 mg/dL (7-18); CALCIUM 8.6 mg/dL (8.5-10.1); CREATININE 0.9 mg/dL (0.55-1.3); MAGNESIUM 2.1 mg/dL (1.8-2.4); PHOSPHOROUS 4.2 mg/dL (2.5-4.9); POTASSIUM 4.2 mmol/L (3.5-5.1); TOT PROT 6.1 g/dl (6.4-8.2)
[2020-02-16] MEDS ORDERED: PT OWN MED DRAWER 7, Y5N ONE (09:41)
[2020-02-16] MEDS: ENOXAPARIN NA (PORCINE) 40 MG/0.4 ML DISP.SYRIN SQ SCH (09:51)
[2020-02-16] MEDS: PANTOPRAZOLE SODIUM 40 MG VIAL IVPUSH SCH (09:51)
[2020-02-16] MEDS ORDERED: IBUPROFEN 600 MG TABLET (FP) PO PRN (10:49)
--- NOTE | 2020-02-16 12:25 | PN ---
Physical Exam: SUBJECTIVE: Patient seen and examined at bedside this morning. No acute events overnight. Patient reports feeling well, with minimal abdominal pain and continues to pass flatus. No bowel movements yet. Patient tolerated full liquid diet. OBJECTIVE: Vital Signs Temperature 98.4 F 02/16/20 10:00 Pulse Rate 67 02/16/20 10:00 Respiratory Rate 02/16/20 10:00 Blood Pressure 127/69 02/16/20 10:00 O2 Sat by Pulse Oximetry (%) 95 02/16/20 09:00 GENERAL: The patient is awake, alert, and fully oriented, in no acute distress. HEAD: Normal with no signs of trauma. EYES: PERRLA, EOMI, sclera anicteric, conjunctiva clear. ENT: dry mucous membranes. NECK: Trachea midline, full range of motion, supple. LUNGS: Decreased breath sounds on bilateral bases HEART: Regular rate and rhythm, S1, S2 ABDOMEN: Soft, +minimal periumbilical tenderness, nondistended, normoactive bowel sounds. EXTREMITIES: 2+ pulses, warm, well-perfused, no edema. NEUROLOGICAL: Cranial nerves II through XII grossly intact. Normal speech PSYCH: Normal mood, normal affect. SKIN: Warm, dry, normal turgor, no rashes or lesions noted Laboratory Results - last 24 hr 02/16/20 02/16/20 07:16 07:16 WBC 5.7 RBC 3.96 Hgb 11.3 Hct 35.1 MCV 88.6 MCH 28.7 MCHC 32.3 RDW 14.0 Plt Count 341 MPV 7.9 Absolute Neuts (auto) 2.7 Neutrophils % 47.7 Lymphocytes % 35.8 Monocytes % 12.4 H Eosinophils % 3.6 Basophils % 0.5 Nucleated RBC % 0 Sodium 142 Potassium 4.2 Chloride 105 Carbon Dioxide 30 Anion Gap 7 L BUN 4.7 L Creatinine 0.9 Est GFR (CKD-EPI)AfAm 85.20 Est GFR (CKD-EPI)NonAf 73.51 Random Glucose 91 Calcium 8.6 Phosphorus 4.2 Magnesium 2.1 Total Bilirubin 0.3 AST 12 L ALT 12 L Alkaline Phosphatase 41 L Total Protein 6.1 L Albumin 2.8 L Active Medications Generic Name Dose Route Start Last Admin Trade Name Freq PRN Reason Stop Dose Admin Acetaminophen 650 mg 02/12/20 12:03 Tylenol - PO Q4H PRN FEVER Enoxaparin Sodium 40 mg 02/13/20 10:00 02/16/20 09:51 Lovenox - SQ 40 mg DAILY RAUL Administration Potassium Chloride/Dextrose/Sod Cl 20 meq in 1,000 mls @ 100 mls/hr 02/12/20 12:15 02/15/20 18:48 D5-1/2ns+20 Meq Kcl - IV 100 mls/hr ASDIR RAUL Administration Ertapenem 1 gm/ Sodium 50 mls @ 50 mls/hr 02/12/20 16:00 02/15/20 11:18 Chloride IVPB 50 mls/hr DAILY RAUL Administration Ibuprofen 600 mg 02/16/20 10:49 Motrin - PO Q6H PRN PAIN LEVEL 6-10 Ondansetron HCl 4 mg 02/12/20 12:03 Zofran Injection IVPUSH Q6H PRN NAUSEA Oxycodone HCl 7.5 mg 02/12/20 12:03 02/13/20 01:54 Roxicodone - PO 7.5 mg Q4H PRN Administration PAIN LEVEL 4 - 6 Pantoprazole Sodium 40 mg 02/13/20 10:00 02/16/20 09:51 Protonix Iv IVPUSH 40 mg DAILY RAUL Administration ASSESSMENT/PLAN: Patient is a 54 year-old female with past medical history of gastritis and iron- deficiency anemia. Patient admitted for acute appendicitis and subsequently underwent lap appendectomy. #Acute appendicitis -POD 4 laparoscopic appendectomy, extensive lysis adhesion, small bowel resection, lavage -clear liquid diet started today -as per surgery, will need to be on liquid diet for minimum one week. -continue IVF -pain control with Ibuprofen and Oxycodone -Continue Ertapenem 1gm daily for possible mesh contamination -Zofran prn for nausea -OOB, incentive spirometer -Surgery (Dr. Worrell) consulted. Recommendations appreciated. #Normocytic anemia -likely 2/2 post-op blood loss and hemodilution from IVF, now resolved #Aysmptomatic bacteriuria -Urine culture: Lactobacillus -On Ertapenem for the post-op surgery #FEN -Not on any standing fluids -Electrolytes wnl -Full liquid diet #Prophylaxis -Lovenox 40mg sq daily #Disposition -full code -continue to monitor on med surg, for likely discharge tomorrow Visit type - Emergency Visit Emergency Visit: Yes ED Registration Date: 02/12/20 Care time: The patient presented to the Emergency Department on the above date and was hospitalized for further evaluation of their emergent condition. - New Patient This patient is new to me today: No - Critical Care Critical Care patient: No ATTENDING PHYSICIAN STATEMENT I saw and evaluated the patient. I reviewed the resident's note and discussed the case with the resident. I agree with the resident's findings and plan as documented. SUBJECTIVE: OBJECTIVE: ASSESSMENT AND PLAN:
[2020-02-16] MEDS: ERTAPENEM SODIUM 1 GM in SODIUM CHLORIDE 50 ML IVPB SCH (13:07)
[2020-02-16] MEDS: oxyCODONE HCL 5 MG TABLET PO PRN ×2 (13:42→22:06)
--- NOTE | 2020-02-16 13:46 | PN ---
Progress Note (short form) - Note Progress Note: 54yo F s/p lap appy with small bowel resection. Pt states that she is hungry and anxious to go home. Pt denies fever, chills, n/v. Last Vital Signs Temp Pulse Resp BP Pulse Ox 98.4 F 67 20 127/69 95 02/16/20 10:00 02/16/20 10:00 02/16/20 10:00 02/16/20 10:00 02/16/20 09:00 CBC, BMP 02/16/20 07:16 02/16/20 07:16 PE: Gen: a&O X3 Resp: breathing comfortably Abd: soft, nondistended, mild tenderness, incisions clean with no erythema or discharge. Ext: no edema Problem List - Problems (1) Status post laparoscopic appendectomy Assessment/Plan: Plan -will adv diet to full liquids, if pt tolerates diet can discharge tomorrow. -continue augmentin for 1 week -dvt ppx -oob/ambulate Pt discussed with Dr. Stalin Braga who agrees with plan
--- NOTE | 2020-02-16 15:43 | PN ---
Teaching Attending Note Name of Resident: Nahomi Mello ATTENDING PHYSICIAN STATEMENT I saw and evaluated the patient. I reviewed the resident's note and discussed the case with the resident. I agree with the resident's findings and plan as documented. SUBJECTIVE: Toleratring clear liquid diet. Passing gas. No abdominal pain/nausea/vomiting/fever/chills. OBJECTIVE: Afebrile, Hemodynamically stable. Last Vital Signs Temp Pulse Resp BP Pulse Ox 98.4 F 67 20 127/69 95 02/16/20 10:02/16/20 10:02/16/20 10:02/16/20 10:02/16/20 09:00 HEENT - Atraumatic, normocephalic. Heart - S1, S2, RRR Lungs - clear to auscultation Abdomen - Soft, trochar sites non-tender. Some bloody discharge from umbilical incision, no signs of infection. Bowel Sounds normal. Extremities - no edema, no calf tenderness. Laboratory Results - last 24 hr 02/16/20 02/16/20 07:16 07:16 WBC 5.7 RBC 3.96 Hgb 11.3 Hct 35.1 MCV 88.6 MCH 28.7 MCHC 32.3 RDW 14.0 Plt Count 341 MPV 7.9 Absolute Neuts (auto) 2.7 Neutrophils % 47.7 Lymphocytes % 35.8 Monocytes % 12.4 H Eosinophils % 3.6 Basophils % 0.5 Nucleated RBC % 0 Sodium 142 Potassium 4.2 Chloride 105 Carbon Dioxide 30 Anion Gap 7 L BUN 4.7 L Creatinine 0.9 Est GFR (CKD-EPI)AfAm 85.20 Est GFR (CKD-EPI)NonAf 73.51 Random Glucose 91 Calcium 8.6 Phosphorus 4.2 Magnesium 2.1 Total Bilirubin 0.3 AST 12 L ALT 12 L Alkaline Phosphatase 41 L Total Protein 6.1 L Albumin 2.8 L Current Medications Generic Name Dose Route Start Last Admin Trade Name Freq PRN Reason Stop Dose Admin Acetaminophen 650 mg 02/12/20 12:03 Tylenol - PO Q4H PRN FEVER Enoxaparin Sodium 40 mg 02/13/20 10:00 02/16/20 09:51 Lovenox - SQ 40 mg DAILY RAUL Administration Ertapenem 1 gm/ Sodium 50 mls @ 50 mls/hr 02/12/20 16:00 02/16/20 13:07 Chloride IVPB 50 mls/hr DAILY RAUL Administration Ibuprofen 600 mg 02/16/20 10:49 02/16/20 14:44 Motrin - PO 600 mg Q6H PRN Administration PAIN LEVEL 6-10 Ondansetron HCl 4 mg 02/12/20 12:03 Zofran Injection IVPUSH Q6H PRN NAUSEA Oxycodone HCl 7.5 mg 02/12/20 12:03 02/16/20 13:42 Roxicodone - PO 7.5 mg Q4H PRN Administration PAIN LEVEL 4 - 6 Pantoprazole Sodium 40 mg 02/17/20 10:00 Protonix - PO DAILY [facility] Home Medications Medication Instructions Recorded Lansoprazole [Prevacid] 15 mg PO HS 09/05/18 Acetaminophen [Tylenol .Regular 650 mg PO Q4H PRN tablet 02/16/20 Strength -] Ibuprofen [Motrin -] 600 mg PO Q6H PRN #15 tablet 02/16/20 ASSESSMENT AND PLAN: 54 year old female with past medical history of gastritis, iron deficiency anemia, prior hernia repair, presents with acute appendicitis. 1. Acute Appendicitis POD 4 s/p laparoscopic appendectomy with extensive adhesions to mesh (prior hernia repair) requiring small bowel resection and lavage. Diet advanced to clears Surgery following - for an additional day of observation as in-patient per Surgery. Ertapenem as per Surgery - recommend 7 additional days Augmentin on discharge as per Surgery. 2. Acute Blood Loss Anemia secondary to Surgery/Dilution - monitor H/H 3. Gastritis/GERD - Continue PPI DVT Px - Lovenox SQ
[2020-02-17 08:22] LABS: BASO % 1.3 % (0-2.0); EOS % 4.5 % (0-4.5); HEMATOCRIT 35.6 % (32.4-45.2); HEMOGLOBIN 11.5 GM/dL (10.7-15.3); LYMPH % 38.7 % (8-40); MCH 28.7 pg (25.7-33.7); MCHC 32.4 g/dl (32.0-36.0); MEAN CELL VOLUME 88.6 fl (80-96); MONO % 10.7 % (3.8-10.2); NEUT % 44.8 % (42.8-82.8); PLATELET COUNT 352 K/MM3 (134-434); RBC 4.02 M/mm3 (3.60-5.2); RDW 13.9 % (11.6-15.6); WHITE BLOOD COUNT 5.6 K/mm3 (4.0-10.0)
[2020-02-17 08:28] LABS: ALBUMIN 2.7 g/dl (3.4-5.0); BILIRUBIN,TOTAL 0.3 mg/dL (0.2-1); BLOOD UREA NITROGEN 6.1 mg/dL (7-18); CALCIUM 8.8 mg/dL (8.5-10.1); MAGNESIUM 2.3 mg/dL (1.8-2.4); PHOSPHOROUS 4.3 mg/dL (2.5-4.9); POTASSIUM 4.6 mmol/L (3.5-5.1); TOT PROT 6.1 g/dl (6.4-8.2)
[2020-02-17 08:43] LABS: CREATININE 0.9 mg/dL (0.55-1.3)
[2020-02-17] MEDS: D5-1/2NS+20 MEQ KCL - 20 MEQ/1,000 ML INFUS.BAG IV SCH (09:07)
[2020-02-17] MEDS ORDERED: PANTOPRAZOLE 40 MG TABLET PO SCH (10:00)
[2020-02-17] MEDS: ENOXAPARIN NA (PORCINE) 40 MG/0.4 ML DISP.SYRIN SQ SCH (10:46)
[2020-02-17] MEDS: ERTAPENEM SODIUM 1 GM in SODIUM CHLORIDE 50 ML IVPB SCH (11:57)
--- NOTE | 2020-02-17 12:31 | PN ---
Progress Note (short form) - Note Progress Note: Surgery 54yo F s/p lap appy with small bowel resection. Pt states that she is hungry and anxious to go home. She moved her bowels this morning and is tolerating her full liquid diet. She denies fever, chills, CP, n/v/d and is ambulating without assistance. Vital Signs Period Temp Pulse Resp BP Sys/[place] Pulse Ox Last 24 Hr 97.8 F-98.8 F 59-65 18-20 100-125/53-71 96 CBC, BMP 02/17/20 06:55 02/17/20 06:55 PE: Gen: a&O X3 Resp: breathing comfortably Abd: soft, nondistended, mild tenderness, incisions clean with no erythema or discharge. Ext: no edema, compartments soft, supple and non-tender with +2 DP pulses Problem List - Problems (1) Status post laparoscopic appendectomy Assessment/Plan: Patient doing well Plan -Continue full liquids for the next week -d/c home on Augmentin x 1 week -f/u with Dr Worrell in 1 week -Cleared from surgical standpoint for d/c home-diet and antibiotics discussed with patient Evaluation and plan discussed with Dr Worrell Problems reviewed: Yes
[2020-02-17] MEDS ORDERED: levoFLOXacin 750 MG TABLET PO SCH (13:15)
--- NOTE | 2020-02-17 13:26 | DS ---
Physical Exam: SUBJECTIVE: Patient seen and examined Patient is comfortable and in no distress. Reports feeling hungry and has had one episode of bowl movement in the morning S/P appendectomy. OBJECTIVE: Vital Signs Period Temp Pulse Resp BP Sys/[place] Pulse Ox Last 24 Hr 97.8 F-98.8 F 59-65 18-20 100-125/53-71 96-96 PHYSICAL EXAM GENERAL: The patient is awake, alert, and fully oriented, in no acute distress. HEAD: Normal with no signs of trauma. EYES: PERRL, extraocular movements intact, sclera anicteric, conjunctiva clear. ENT: Ears normal, nares patent, oropharynx clear without exudates, moist mucous membranes. NECK: Trachea midline, full range of motion, supple. LUNGS: Breath sounds equal, clear to auscultation bilaterally, no wheezes, no crackles, no accessory muscle use. HEART: Regular rate and rhythm, S1, S2 without murmur, rub or gallop. ABDOMEN: Soft, nontender, nondistended, normoactive bowel sounds, no guarding, no rebound, no hepatosplenomegaly, no masses. EXTREMITIES: 2+ pulses, warm, well-perfused, no edema. NEUROLOGICAL: Cranial nerves II through XII grossly intact. Normal speech, gait not observed. PSYCH: Normal mood, normal affect. SKIN: Warm, dry, normal turgor, no rashes or lesions noted. LABS Laboratory Results - last 24 hr 02/17/20 02/17/20 06:55 06:55 WBC 5.6 RBC 4.02 Hgb 11.5 Hct 35.6 MCV 88.6 MCH 28.7 MCHC 32.4 RDW 13.9 Plt Count 352 MPV 8.0 Absolute Neuts (auto) 2.5 Neutrophils % 44.8 Lymphocytes % 38.7 Monocytes % 10.7 H Eosinophils % 4.5 Basophils % 1.3 Nucleated RBC % 0 Sodium 143 Potassium 4.6 Chloride 106 Carbon Dioxide 30 Anion Gap 6 L BUN 6.1 L Creatinine 0.9 Est GFR (CKD-EPI)AfAm 85.20 Est GFR (CKD-EPI)NonAf 73.51 Random Glucose 83 Calcium 8.8 Phosphorus 4.3 Magnesium 2.3 Total Bilirubin 0.3 AST 12 L ALT 14 Alkaline Phosphatase 42 L Total Protein 6.1 L Albumin 2.7 L HOSPITAL COURSE: Date of Admission:02/12/20 54 yo f reported to the ED with R flank pain and a pSX of hernia surgery with extensive adhesions discovered on appendectomy. Presented to the the emergency department with vomiting and low back pain ra diating to her groin. Patient underwent successful laparoscopic appendectomy with good wound healing. 1. Appendectomy - wound examined - healing well with two trochar incisions on the L side and one main trochar incision intranaval - patient POD#1 tolerating clear liquid diet - Bowl movement (x1) this morning - denies nausea/vomitng - denies fever Date of Discharge: 02/17/20 Minutes to complete discharge: 10 Discharge Summary Problems reviewed: Yes Reason For Visit: APPENDICITIS Current Active Problems Status post laparoscopic appendectomy (Acute) Condition: Stable - Instructions Diet, Activity, Other Instructions: Your visit You were admitted to the hospital because you had belly pain and you were found to have appendicitis. You underwent surgery to have your appendix removed. You will be discharged on a liquid diet which you will continue for at least 1 week. Please follow up surgery for further instructions about advancement of diet. Medications You may take Tylenol or Ibuprofen as needed for pain. Please take Levofloxacin 500mg daily for 7 days. Your last dose will be on the 23 of February. Please take oxycodone 5mg once every 4 hours for pain NEEDED. Follow up Please follow up with your primary care doctor within 1-2 weeks. Please follow up with the surgery (Dr. Li). Please call the office to schedule an appointment Additional info Please call 911 or go to the ED if with worsening fevers, chills, headache, nausea ,vomiting, chest pain, shortness of breath, belly pain, or any new concerns noted. Bharat Berg M.D. Jose PotterO. [address] [facility], [address] [place] [address] Post Anesthesia/IV Sedation Do not drive a motor vehicle or drink alcohol for the next 24 hours. Physical Activity Resume normal everyday activity as tolerated. No heavy lifting or exercise until seen by your surgeon. You may walk unlimited amounts and climb stairs. You may resume driving a car when you feel safe and comfortable behind the wheel. Wound Care / Bathing If you have a bandage, leave it on, and keep dry, for 48 to 72 hours. After that time, discard the outer bandage. If there are tapes on the skin under the outer bandage, leave then in place. They will peel of in the next 7-10 days. Do not peel them off. You may shower in 48-72 hours after the bandage removal. If there are tapes present on the skin, you may shower over them. If you have clear glue covering your incision, you may shower in 24 hours. It will peel off in the next 1-2 weeks. Diet Please continue on a liquid diet for at least 1 week. Please call the surgeon for further instructions on advancement of diet. Pain Management You may take Tylenol (Acetaminophen) or Ibuprofen (Motrin, Advil, etc) for mild pain. Prescription medication, if ordered, should be taken as prescribed for moderate to severe pain. Bruising Some black and blue areas on or around your surgical site are normal and will disappear in a few days. Male groin hernia patients may experience swelling and black/blueness in the penis and scrotum. This will resolve on its own in 1-[address] PAREKH / DR. BERG / DR. LI FOR ANY OF THE FOLLOWING: * Severe pain not relieved by medication * Fever of 101 or higher * Excessive bleeding or drainage on dressing * Inability to urinate Call the office at [phone] for an appointment in 10-14 days. Referrals: [facility] [place] [Provider Group] Denton Li MD [Staff Physician] - Disposition: HOME - Home Medications Comprehensive Discharge Medication List: Ambulatory Orders Lansoprazole [Prevacid] 15 mg PO HS 09/05/18 Acetaminophen [Tylenol .Regular Strength -] 650 mg PO Q4H PRN tablet 02/16/20 Ibuprofen [Motrin -] 600 mg PO Q6H PRN #15 tablet 02/16/20 levoFLOXacin [Levaquin -] 500 mg PO DAILY #7 tablet 02/17/20 oxyCODONE HCL [Roxicodone -] 5 mg PO Q4H PRN #10 tablet MDD 6 02/17/20 This patient is new to me today: No Emergency Visit: Yes ED Registration Date: 02/12/20 Care time: The patient presented to the Emergency Department on the above date and was hospitalized for further evaluation of their emergent condition. Critical Care patient: No - Discharge Referral Referred to [facility] Med [facility].C[facility] No ATTENDING PHYSICIAN STATEMENT I saw and evaluated the patient. I reviewed the resident's note and discussed the case with the resident. I agree with the resident's findings and plan as documented. SUBJECTIVE: OBJECTIVE: ASSESSMENT AND PLAN:
[2020-02-17 14:51] VITALS: BP 135/75; PULSE 63; TEMP 98.2
--- NOTE | 2020-02-17 17:33 | PATH ---
Surgical Pathology Report Patient Name: ANIL BRAND Med. Rec. #: [id number] /Age/Gender: 1965 (Age: 54) / F Account: [id number] Location: [facility] MED/SURG Taken: 02/12/2020 Received: 02/15/2020 Reported: 02/17/2020 Physicians: Denton Worrell M.D. Specimen(s) Received A: APPENDIX B: PORTION OF SMALL BOWEL WITH ENTEROTOMY Clinical History Appendicitis Final Diagnosis A. APPENDIX, APPENDECTOMY: ACUTE APPENDICITIS AND PERIAPPENDICITIS. B. PORTION OF SMALL BOWEL WITH ENTEROTOMY , RESECTION: PORTION OF SMALL INTESTINE WITH FOCAL SUBMUCOSAL EDEMA AND HEMORRHAGE. FOCAL ACUTE SEROSITIS. VIABLE MARGINS. Electronically Signed Arden Nova M.D. Gross Description A. Received in formalin, labeled "appendix," is a 6 cm. in length vermiform appendix with a stapled margin of resection and abundant attached fat. The serosa is yung-howard with abundant attached exudate. Sectioning reveals an unremarkable lumen. The wall of the appendix averages 0.1 cm. in thickness. Heating Fixture Tender sections are submitted in one cassette. B. Received in formalin labeled "small bowel with enterotomy," is a 5 cm in length portion of small bowel with 2 open mucosal margins and moderate attached fat. The serosa is yung-brown and there is a large transmural defect present. The mucosa is yung with normal folds. No mucosal masses are identified. Heating Fixture Tender sections are submitted in 4 cassettes as follows: 1-2-mucosal margins; 3-defect; 4-uninvolved mucosa. 02/15/2020 [facility]02/15/2020
--- NOTE | 2020-02-17 17:59 | PN ---
Teaching Attending Note Name of Resident: Dl Wilkerson ATTENDING PHYSICIAN STATEMENT I saw and evaluated the patient. I reviewed the resident's note and discussed the case with the resident. I agree with the resident's findings and plan as documented. SUBJECTIVE: Tolerating clear liquid diet. Passing gas/BM. No abdominal pain/nausea/vomiting/fever/chills. OBJECTIVE: Afebrile, Hemodynamically stable. Last Vital Signs Temp Pulse Resp BP Pulse Ox 98.2 F 63 18 135/75 96 02/17/20 14:00 02/17/20 14:00 02/17/20 14:00 02/17/20 14:00 02/17/20 09:00 Heart - S1, S2, RRR Lungs - clear to auscultation Abdomen - Soft, trochar sites non-tender, no signs of infection. Bowel Sounds normal. Extremities - no edema, no calf tenderness. Neuro - AAO x 3. tone/Power normal all extremities. Laboratory Results - last 24 hr 02/17/20 02/17/20 06:55 06:55 WBC 5.6 RBC 4.02 Hgb 11.5 Hct 35.6 MCV 88.6 MCH 28.7 MCHC 32.4 RDW 13.9 Plt Count 352 MPV 8.0 Absolute Neuts (auto) 2.5 Neutrophils % 44.8 Lymphocytes % 38.7 Monocytes % 10.7 H Eosinophils % 4.5 Basophils % 1.3 Nucleated RBC % 0 Sodium 143 Potassium 4.6 Chloride 106 Carbon Dioxide 30 Anion Gap 6 L BUN 6.1 L Creatinine 0.9 Est GFR (CKD-EPI)AfAm 85.20 Est GFR (CKD-EPI)NonAf 73.51 Random Glucose 83 Calcium 8.8 Phosphorus 4.3 Magnesium 2.3 Total Bilirubin 0.3 AST 12 L ALT 14 Alkaline Phosphatase 42 L Total Protein 6.1 L Albumin 2.7 L Home Medications Medication Instructions Recorded Lansoprazole [Prevacid] 15 mg PO HS 09/05/18 Acetaminophen [Tylenol .Regular 650 mg PO Q4H PRN tablet 02/16/20 Strength -] Ibuprofen [Motrin -] 600 mg PO Q6H PRN #15 tablet 02/16/20 levoFLOXacin [Levaquin -] 500 mg PO DAILY #7 tablet 02/17/20 oxyCODONE HCL [Roxicodone -] 5 mg PO Q4H PRN #10 tablet MDD 6 02/17/20 ASSESSMENT AND PLAN: 54 year old female with past medical history of gastritis, iron deficiency anemia, prior hernia repair, presents with acute appendicitis. 1. Acute Appendicitis POD 5 s/p laparoscopic appendectomy with extensive adhesions to mesh (prior hernia repair) requiring small bowel resection and lavage. tolerating advanced diet. Ertapenem as per Surgery - recommend 7 additional days Levofloxacin on discharge as per Surgery. Medically and Surgically stable for discharge with out-patient Surgery follow up. Full liquids for 1 week as per Surgery 2. Acute Blood Loss Anemia secondary to Surgery/Dilution - H/H stable. 3. Gastritis/GERD - Continue PPI Medically/Surgically stale for discharge
== END 2020-02-17 15:07 | disposition home or self-care (01) | DRG 330 ==
LOC: SUPCPDRO 03:04 → FER 03:04 → J6WEST-2 17:05 → J8W 19:59
PROVIDERS: ADMIT Surgery
PROC: 0DB84ZZ Excision of Small Intestine, Percutaneous Endoscopic Approach (ICD-10-PCS; 2020-02-12)
PROC: 0DN84ZZ Release Small Intestine, Percutaneous Endoscopic Approach (ICD-10-PCS; 2020-02-12)
PROC: 0DTJ4ZZ Resection of Appendix, Percutaneous Endoscopic Approach (ICD-10-PCS; principal; 2020-02-12 12:00)
DX: K35.80 Unspecified acute appendicitis (principal); D62 Acute posthemorrhagic anemia; K66.0 Peritoneal adhesions (postprocedural) (postinfection); K21.9 Gastro-esophageal reflux disease without esophagitis; K29.70 Gastritis, unspecified, without bleeding; R10.31 Right lower quadrant pain; D72.829 Elevated white blood cell count, unspecified
CPT/HCPCS: 36415; 71045-TC-FY; 74018-TC-FY; 74176-TC; 80048; 80053; 81003; 82728; 83540; 83550; 83735; 84100; 84702; 85025; 86850; 86900; 86901; 87077; 87086; 88304-TC; 88305-TC; 93005; 94760; 99285-25; U0003

== ENCOUNTER 2020-03-14 17:48 | Inpatient (IN) | payer BC ==
--- NOTE | 2020-03-14 18:28 | PDOC ---
History of Present Illness - General Chief Complaint: Pain Stated Complaint: ABDOMINAL PAIN History Source: Patient Exam Limitations: No Limitations - History of Present Illness Initial Comments: 03/14/20 18:28 HPI 54 yo female with recent appendicitis s/p lap appendectomy in February 12, 2020, prior hernia surgery and adhesions, prior C sections, hernia, chronic gastritis (last EGD 2016), diverticular disease, anemia presenting today with epigastric abdominal pain since this morning. she states she was in her usual state of health, she ate some seafood for dinner last night (crab legs, shrimp, etc) and went to bed fine. this morning, she woke up with severe epigastric abdominal pain, nonradiating, sharp and crampy associated with decreased PO intake/appetite, nausea, one episode of NBNB emesis and diarrhea. she admits to chronic gastritis and long standing "stomach issues." she states she is afraid to eat due to her nausea and abdominal pain. +suspicious food intake endorses mild headache and dizziness. she tried ibuprofen 800mg tablet x 1 dose about 3 days ago for stomach issues, helped her symptoms at that time. Denies fever, chills, chest pain, SOB, palpitation, dizziness, weakness, bladder and bowel problems, hematuria, urgency or frequency, focal weakness/p aresthesias, leg swelling/pain, rash. No sick contacts or travel. No new changes in medications. no trauma. Allergies: PCN Past Medical History/PSH: Csection times 3. Knee surgery. Hernia surgery. Right Rotator cuff repair January 2010. EGD 04/14/17 Chronic gastritis. Colonoscopy 04/10/17 Diverticulosis, appendectomy Social history: Lives with family. No tobacco, or drug use. occ ETOH use. Meds: as documented in EMR Family history: noncontributory PMD: Dr Deleon Review of systems Constitutional: no fevers or chills. No weakness HEENT: +headache or dizziness. No congestion. No visual/hearing disturbances. CVS: no cp or syncope. Resp: no sob. No cough. Gastrointestinal: +abdominal pain, + nausea, vomiting, or diarrhea. no back or flank pain. Genitourinary: no urinary sx, hematuria. MUSCULOSKELETAL: No joint pain and swelling. No neck or back pain. SKIN: no redness or skin changes, no discharge, no rash. No wounds. Hematologic: no easy bruising/bleeding. NEUROLOGIC: +headache, dizziness, No LOC or altered mental status. No weakness, numbness or tingling. Psych: no anxiety or depression Allergic/Immunologic: +pcn allergies All other systems reviewed and negative, or as documented in HPI. Physical exam General: mild distress/colicky. HEENT: NCAT, PERRL, EOMI, clear conjunctiva, anicteric, moist mucus membranes, clear oropharynx, no oral lesions.. Neck: neck supple, FROM Resp: CTAB, normal and even respirations, no respiratory distress CVS: RRR, no murmurs, 2+ peripheral pulses throughout, no peripheral edema Abdomen: soft, obese abdomen, +epigastric TTP, no rebound or guarding. neg sue's sign. no CVAT. post laparoscopy scars present, well healed scars. Back: nontender, normal inspection and ROM MSK: no edema, CELESTE x4, ROM intact. No clubbing or cyanosis. normal bulk and tone. Extremities: no calf tenderness Neuro: alert, oriented appropriately; no focal neurologic deficits Psych: Calm and cooperative Skin: warm and well perfused, cap refill <2 sec, normal color, no rash or skin discoloration. 03/14/20 18:29 03/14/20 18:31 03/14/20 18:43 03/14/20 18:50 Past History - Medical History Allergies/Adverse Reactions: Allergies Allergy/AdvReac Type Severity Reaction Status Date / Time Penicillins Allergy Rash Verified 03/14/20 17:53 Home Medications: Ambulatory Orders NK [No Known Home Medication] 03/14/20 Anemia: Yes (ON IRON) Asthma: No Cancer: No Cardiac Disorders: No CVA: No COPD: No CHF: No DVT: No Dementia: No Diabetes: No GI Disorders: Yes Disorders: No HTN: No Hypercholesterolemia: No Liver Disease: No Seizures: No Thyroid Disease: No - Surgical History Abdominal Surgery: Yes (VENTRAL HENRIA REPAIR-2014) Appendectomy: Yes (LAPROSCOPIC WITH SB RESECTION) Cardiac Surgery: No Cholecystectomy: No Lung Surgery: No Neurologic Surgery: No Orthopedic Surgery: Yes (RIGHT KNEE ARTHROSCOPY-2016) - Reproductive History Tubal Ligation: Yes - Immunization History Immunization Up to Date: Yes - Psycho-Social/Smoking History Smoking Status: No Smoking History: Never smoked Have you smoked in the past 12 months: No Number of Cigarettes Smoked Daily: 0 If you are a former smoker, when did you quit?: 1998 - Substance Abuse Hx (Audit-C & DAST Scrn) How often the patient has a drink containing alcohol: Never Score: In Men: 4 or > Positive; In Women: 3 or > Positive: 0 Screen Result (Pos requires Nsg. Audit-10AR): Negative In the last yr the pt used illegal drug/Rx for NonMed reason: No Score: Yes response is considered Positive: 0 Screen Result (Positive result requires Nsg. DAST-10): Negative Abd/GI Specific PMHX - Complaint Specific PMHX Colitis: No Diverticulitis: No Gall Bladder Disease: No GERD: Yes Hepatitis: No Irritable Bowel Synd (IBS): No Pancreatitis: No GI Ulcer Disease: No *Physical Exam - Vital Signs Last Vital Signs Temp Pulse Resp BP Pulse Ox 98.0 F 76 20 123/78 98 03/14/20 17:49 03/14/20 17:49 03/14/20 17:49 03/14/20 17:49 03/14/20 17:49 Heart Score/ECG Review #1 ECG reviewed & interpreted by me at: 18:55 General ECG Interpretation: Sinus Rhythm, Normal Rate, Normal Intervals Compared to previous ECG there are: No significant change 03/14/20 18:58 EKG normal sinus rhythm 69 bpm, no interval abnormalities, narrow QRS, ST and T wave segments and morphology normal. Nonspecific T wave abnormalities ED Treatment Course - LABORATORY CBC & Chemistry Diagram: 03/15/20 07:07 03/15/20 07:07 Medical Decision Making - Medical Decision Making 03/14/20 18:48 Vital Signs Temp Pulse Resp BP Pulse Ox 98.0 F 76 20 123/78 98 03/14/20 17:49 03/14/20 17:49 03/14/20 17:49 03/14/20 17:49 03/14/20 17:49 VS reviewed, wnl. DDx abdominal pain: Renal colic, biliary colic, metabolic/electrolyte derangements. GERD, PUD, esophageal spasm, pancreatitis, hepatitis, constipation, colitis, gastroenteritis, cholecystitis, UTI, pyelonephritis, ileus, SBO, medication side effect, hernia, ACS arrhythmia. sx most consistent with dyspepsia/gastritis (which is chronic for her) or gastroenteritis, food poisoning with suspicious food intake. no RLQ or RUQ tenderness noted. no systemic features nonperitoneal no pelvic sx. No e/o GIB s/p appendectomy neg sue's sign. sharp/crampy epigastric pain trial of analgesia, maalox/pepcid, zofran, IVF, analgesia, reassess labs and lytes, lipase low threshold for further imaging ultrasound vs CT if persistent pain, given recent surgery and prior surgeries. s/o to Dr Hood pending labs/workup, reeval and disposition. 03/14/20 18:50 03/14/20 18:50 03/14/20 18:58 03/15/20 19:46 Discharge - Discharge Information Problems reviewed: Yes Clinical Impression/Diagnosis: Epigastric abdominal pain, Small bowel obstruction Condition: Guarded - Follow up/Referral - Patient Discharge Instructions - Post Discharge Activity
[2020-03-14] MEDS ORDERED: SODIUM CHLORIDE 1,000 ML IV STA (18:42)
[2020-03-14] MEDS ORDERED: FAMOTIDINE 20 MG/50 ML IVPB 20 MG/50 ML MG IVPB ONE ×2 (18:42→18:56)
[2020-03-14] MEDS ORDERED: ONDANSETRON 4 MG/2 ML VIAL IVPUSH ONE (18:42)
[2020-03-14] MEDS ORDERED: morphine CARPU-JECT 4 MG/1 ML DISP.SYRIN IVPUSH PRN (18:42)
[2020-03-14] MEDS ORDERED: MAG HYDROX/AL HYDROX/SIMETH 30 ML UNIT-DOSE CUP PO ONE (18:50)
[2020-03-14] MEDS ORDERED: MAG HYDROX/AL HYDROX/SIMETH 30 ML UNIT-DOSE CUP ONE (18:56)
[2020-03-14] MEDS ORDERED: morphine SULFATE 4 MG/ML VIAL ONE ×2 (18:56→23:04)
[2020-03-14] MEDS ORDERED: ONDANSETRON 4 MG/2 ML VIAL ONE (18:57)
[2020-03-14 19:05] LABS: BASO % 0.7 % (0-2.0); EOS % 2.1 % (0-4.5); HEMATOCRIT 35.7 % (32.4-45.2); HEMOGLOBIN 11.6 GM/dl (10.7-15.3); MCH 27.9 pg (25.7-33.7); MCHC 32.7 g/dl (32.0-36.0); MEAN CELL VOLUME 85.3 fl (80-96); MONO % 5.3 % (3.8-10.2); NEUT % 61.9 % (42.8-82.8); PLATELET COUNT 341 K/MM3 (134-434); RBC 4.18 M/mm3 (3.60-5.2); RDW 13.4 % (11.6-15.6); WHITE BLOOD COUNT 7.5 K/mm3 (4.0-10.8)
[2020-03-14 19:23] LABS: ALBUMIN 3.3 g/dl (3.4-5.0); ALK PHOS 39 U/L (45-117); ANION GAP 7 MMOL/L (8-16); BILIRUBIN,TOTAL 0.5 mg/dl (0.2-1); CALCIUM 8.6 mg/dl (8.5-10); CHLORIDE 108 mmol/L (98-107); CO2 22 mmol/L (21-32); CREATININE 0.8 mg/dl (0.55-1.3); GLUCOSE,RANDOM 95 mg/dl (74-106); POTASSIUM 3.9 mmol/L (3.5-5.1); SGOT/AST 15 U/L (15-37); SGPT/ALT 10 U/L (13-61); SODIUM 137 mmol/L (136-145); TOT PROT 6.4 g/dl (6.4-8.2)
[2020-03-14 20:25] LABS: LIPASE 79 U/L (73-393)
--- NOTE | 2020-03-14 20:28 | PDOC ---
*Physical Exam - Vital Signs Last Vital Signs Temp Pulse Resp BP Pulse Ox 98.0 F 76 20 123/78 98 03/14/20 17:49 03/14/20 17:49 03/14/20 17:49 03/14/20 17:49 03/14/20 17:49 ED Treatment Course - LABORATORY CBC & Chemistry Diagram: 03/14/20 18:55 03/14/20 18:30 - ADDITIONAL ORDERS Additional order review: Laboratory Results 03/14/20 03/14/20 18:48 18:30 Sodium 137 Potassium 3.9 Chloride 108 H Carbon Dioxide 22 Anion Gap 7 L BUN 6.0 L Creatinine 0.8 Est GFR (CKD-EPI)AfAm 98.24 Est GFR (CKD-EPI)NonAf 84.76 Random Glucose 95 Calcium 8.6 Total Bilirubin 0.5 AST 15 ALT 10 L Alkaline Phosphatase 39 L Creatine Kinase 162 Troponin I < 0.03 Total Protein 6.4 Albumin 3.3 L Lipase 79 03/14/20 18:55 RBC 4.18 MCV 85.3 MCHC 32.7 RDW 13.4 MPV 8.0 Neutrophils % 61.9 Lymphocytes % 30.0 Monocytes % 5.3 Eosinophils % 2.1 Basophils % 0.7 - Medications Given in the ED: ED Medications Discontinued Medications Generic Name Dose Route Start Last Admin Trade Name Cyq PRN Reason Stop Dose Admin Al Hydroxide/Mg Hydroxide 30 ml 03/14/20 18:50 03/14/20 19:15 Mylanta Oral Suspension - PO 03/14/20 18:51 30 ml ONCE ONE Administration Sodium Chloride 1,000 mls @ 1,000 mls/hr 03/14/20 18:42 03/14/20 18:48 Normal Saline - IV 03/14/20 19:41 1,000 mls/hr ASDIR STA Administration Famotidine/Sodium Chloride 20 mg in 50 mls @ 100 mls/hr 03/14/20 18:42 19:00 Pepcid 20 Mg Premixed Ivpb - IVPB 03/14/20 19:11 100 mls/hr ONCE ONE Administration Ondansetron HCl 4 mg 03/14/20 18:42 03/14/20 19:10 Zofran Injection IVPUSH 03/14/20 18:43 4 mg ONCE ONE Administration Medical Decision Making - Medical Decision Making Care of this patient received from Although laboratory evaluation was essentially normal, the patient had recurrent epigastric pain with increased tenderness in this area. Because of this, abdominal/pelvic CT with IV contrast was performed. Acetaminophen 1 g IV ordered for pain Interpretation of the study by Dr. Wiggins of the radiology staff: Small bowel obstruction with loop of intestine dilated in the area around mesh inserted. No evidence of new hernia or other acute pathology. Results discussed with the patient. Patient's surgery was performed by Dr. Worrell. is on-call for the group and case discussed with him. He agrees to admission for observation. Case discussed with PETER Guzman. Patient will be admitted to Dr. Houston's service Discharge - Discharge Information Problems reviewed: Yes Clinical Impression/Diagnosis: Epigastric abdominal pain, Small bowel obstruction Condition: Guarded - Admission Yes - Follow up/Referral - Patient Discharge Instructions - Post Discharge Activity
[2020-03-14] MEDS ORDERED: ACETAMINOPHEN 1000 MG/100 ML VIAL (NON FORMULARY) IVPB ONE (22:08)
[2020-03-14] MEDS ORDERED: ACETAMINOPHEN INJECTION 100 ML IVPB ONE (22:09)
[2020-03-14] MEDS ORDERED: KETOROLAC TROMETHAMINE 15 MG/ML VIAL IVPUSH PRN (22:55)
[2020-03-15 00:03] VITALS: BMI 37.5
[2020-03-15] MEDS: SODIUM CHLORIDE 1,000 ML IV SCH ×2 (00:12→22:09)
[2020-03-15] MEDS ORDERED: ACETAMINOPHEN 1000 MG/100 ML VIAL (NON FORMULARY) IVPB ONE (06:45)
[2020-03-15 07:21] LABS: HEMATOCRIT 31.9 % (32.4-45.2); HEMOGLOBIN 10.7 GM/dl (10.7-15.3); MCH 28.6 pg (25.7-33.7); MCHC 33.5 g/dl (32.0-36.0); MEAN CELL VOLUME 85.2 fl (80-96); MEAN PLT VOLUME 7.3 fl (7.5-11.1); PLATELET COUNT 291 K/MM3 (134-434); RBC 3.74 M/mm3 (3.60-5.2); RDW 13.2 % (11.6-15.6); WHITE BLOOD COUNT 6.1 K/mm3 (4.0-10.8)
[2020-03-15 07:48] LABS: CREATININE 0.8 mg/dl (0.55-1.3); MAGNESIUM 1.9 mg/dL (1.8-2.4); POTASSIUM 4.1 mmol/L (3.5-5.1)
--- NOTE | 2020-03-15 08:22 | HP ---
CHIEF COMPLAINT: Abdominal pain PCP: HISTORY OF PRESENT ILLNESS: 54 year-old female with a PMH significant for gastritis, iron-deficiency anemia, and recent hospitalization for laparoscopic appendectomy, ventral mesh repair, and small bowel resection (02/11-02/17/20). Presented to the ED yesterday for evaluation of epigastric abdominal pain that began yesterday morning. She describes the pain as severe, sharp, nonradiating, and crampy. It is associated with decreased PO intake/appetite, nausea, one episode of NBNB emesis and one episode of diarrhea. She is passing large amounts of flatus today, no further BMs. Denies fever, sweats, chills. ER course was notable for: (1) CTAP: small bowel obstruction Recent Travel: No PAST MEDICAL HISTORY: Gastritis Iron-deficiency anemia Gestational diabetes PAST SURGICAL HISTORY: Ventral hernia repair Right rotator cuff repair x 2 Right knee meniscus tear C-sections x 3 Tubal ligation Social History: Smoking: current smoker, not every day Alcohol: occasional Drugs: no Family history: reviewed and non-contributory Allergies Penicillins Allergy (Verified 03/14/20 17:53) Rash A CHILD HOME MEDICATIONS: Home Medications Medication Instructions Recorded NK [No Known Home Medication] 03/14/20 REVIEW OF SYSTEMS CONSTITUTIONAL: Absent: fever, chills, diaphoresis, generalized weakness, malaise, loss of appetite, weight change HEENT: Absent: rhinorrhea, nasal congestion, throat pain, throat swelling, difficulty swallowing, mouth swelling, ear pain, eye pain, visual changes CARDIOVASCULAR: Absent: chest pain, syncope, palpitations, irregular heart rate, lightheadedness, peripheral edema RESPIRATORY: Absent: cough, shortness of breath, dyspnea with exertion, orthopnea, wheezing, stridor, hemoptysis GASTROINTESTINAL: +abdominal pain, nausea, vomiting, diarrhea Absent: abdominal distension, constipation, melena, hematochezia GENITOURINARY: Absent: dysuria, frequency, urgency, hesitancy, hematuria, flank pain, genital pain MUSCULOSKELETAL: Absent: myalgia, arthralgia, joint swelling, back pain, neck pain SKIN: Absent: rash, itching, pallor HEMATOLOGIC/IMMUNOLOGIC: Absent: easy bleeding, easy bruising, lymphadenopathy, frequent infections ENDOCRINE: Absent: unexplained weight gain, unexplained weight loss, heat intolerance, cold intolerance NEUROLOGIC: Absent: headache, focal weakness or paresthesias, dizziness, unsteady gait, seizure, mental status changes, bladder or bowel incontinence PSYCHIATRIC: Absent: anxiety, depression, suicidal or homicidal ideation, hallucinations. PHYSICAL EXAMINATION Vital Signs - 24 hr 03/14/20 03/15/20 17:49 00:02 Temperature 98.0 F 98.3 F Pulse Rate 76 70 Respiratory 20 18 Rate Blood Pressure 123/78 115/54 L O2 Sat by Pulse 98 98 Oximetry (%) GENERAL: Awake, alert, and fully oriented, in no acute distress. HEAD: Normal with no signs of trauma. EYES: Pupils equal, round and reactive to light, extraocular movements intact, sclera anicteric, conjunctiva clear. No lid lag. LUNGS: Breath sounds equal, clear to auscultation bilaterally. No wheezes, and no crackles. No accessory muscle use. HEART: Regular rate and rhythm, normal S1 and S2 ABDOMEN: Soft, tenderness over the umbilicus, no distension, normoactive bowel sounds MUSCULOSKELETAL: Normal range of motion at all joints. No bony deformities or tenderness. No CVA tenderness. UPPER EXTREMITIES: 2+ pulses, warm, well-perfused. No cyanosis. No clubbing. No peripheral edema. LOWER EXTREMITIES: 2+ pulses, warm, well-perfused. No calf tenderness. No peripheral edema. NEUROLOGICAL: Cranial nerves II-XII intact. Normal speech. Laboratory Results - last 24 hr 03/14/20 03/14/20 03/14/20 18:30 18:48 18:55 WBC 7.5 RBC 4.18 Hgb 11.6 Hct 35.7 MCV 85.3 MCH 27.9 MCHC 32.7 RDW 13.4 Plt Count 341 MPV 8.0 Absolute Neuts (auto) 4.6 Neutrophils % 61.9 Lymphocytes % 30.0 Monocytes % 5.3 Eosinophils % 2.1 Basophils % 0.7 Sodium 137 Potassium 3.9 Chloride 108 H Carbon Dioxide 22 Anion Gap 7 L BUN 6.0 L Creatinine 0.8 Est GFR (CKD-EPI)AfAm 98.24 Est GFR (CKD-EPI)NonAf 84.76 Random Glucose 95 Calcium 8.6 Magnesium Total Bilirubin 0.5 AST 15 ALT 10 L Alkaline Phosphatase 39 L Creatine Kinase 162 Creatine Kinase Index No Result Required. CK-MB (CK-2) 0.6 Troponin I < 0.03 Total Protein 6.4 Albumin 3.3 L Lipase 79 07/28/20 07/28/20 07:07 07:07 WBC 6.1 RBC 3.74 Hgb 10.7 Hct 31.9 L MCV 85.2 MCH 28.6 MCHC 33.5 RDW 13.2 Plt Count 291 MPV 7.3 L Absolute Neuts (auto) Neutrophils % Lymphocytes % Monocytes % Eosinophils % Basophils % Sodium 141 Potassium 4.1 Chloride 109 H Carbon Dioxide 26 Anion Gap 6 L BUN 4.0 L Creatinine 0.8 Est GFR (CKD-EPI)AfAm 98.24 Est GFR (CKD-EPI)NonAf 84.76 Random Glucose 98 Calcium 8.0 L Magnesium 1.9 Total Bilirubin AST ALT Alkaline Phosphatase Creatine Kinase Creatine Kinase Index CK-MB (CK-2) Troponin I Total Protein Albumin Lipase ASSESSMENT/PLAN: 54 year-old female with a PMH significant for gastritis, iron-deficiency anemia, and recent hospitalization for laparoscopic appendectomy, ventral mesh repair, and small bowel resection (02/11-02/17/20). Admitted for a small bowel obstruction. Small bowel obstruction --03/14 CTAP: dilated small bowel loop within central and right lateral thirds of mid abdomen c/w obstruction; intraluminal debris, adjacent mesenteric soft tissue thickening/edema --surgery aware --NPO --IV fluids --no vomiting, no NGT for now Gastritis --not on home meds Iron-deficiency anemia --does not take supplements --h/h stable FEN Fluids: NS@75mL/hr Electrolytes: replete as indicated Nutrition: NPO DVT prophylaxis: SCDs Dispo: continues to require inpatient care. Full code. Visit type - Emergency Visit Emergency Visit: Yes ED Registration Date: 03/14/20 Care time: The patient presented to the Emergency Department on the above date and was hospitalized for further evaluation of their emergent condition. - New Patient This patient is new to me today: Yes Date on this admission: 03/15/20 - Critical Care Critical Care patient: No
--- NOTE | 2020-03-15 09:22 | EKG ---
Test Reason : Blood Pressure : / mmHG Vent. Rate : 069 BPM Atrial Rate : 069 BPM P-R Int : 152 ms QRS Dur : 084 ms QT Int : 402 ms P-R-T Axes : 029 030 012 degrees QTc Int : 430 ms NORMAL SINUS RHYTHM NORMAL ECG WHEN COMPARED WITH ECG OF 12-FEB-2020 07:54, NO SIGNIFICANT CHANGE WAS FOUND Confirmed by MD PAT, MULUGETA ([id number]) on 03/15/2020 9:22:25 AM Referred By: Confirmed By:MULUGETA STEWART MD
[2020-03-15] MEDS: morphine CARPU-JECT 2 MG/1 ML DISP.SYRIN IVPUSH PRN ×2 (12:18→17:50)
[2020-03-15] MEDS ORDERED: ACETAMINOPHEN 1000 MG/100 ML VIAL (NON FORMULARY) IVPB PRN (12:23)
--- NOTE | 2020-03-15 13:08 | PN ---
Progress Note (short form) - Note Progress Note: surgery pt seen and examined. 1 month s/p laparoscopic appendectomy and small bowel resection. Pt with hernia mesh at time of surgery and treated with course of abx. Pt presents to [facility] er with abd pain, n/v, and diarrhea after eating a large amount of unripe cantaloupe and shrimp. Ct without oral contrast shows possible sbo with fecalization proximal to anastamosis, at anastamosis, and just distal with decompressed small bowel following. Pt refused ngt decompression. wbc normal. overnight pt is passing gas with some remaining bouts of colicky pain. abd- soft, incision clean, mild tenderness above incision. Laboratory Tests 03/15/20 07:07 WBC 6.1 A/P psbo from fiber bolus at anastmosis or abdominal ahesion just distal. keep npo. will give a dose of oral contrast and get kub in am. suspect as fiber bolus m oves through can likely start liquid diet and discharge. may need outpt small bowel series to evaluate anastamosis. Pt understands that by refusing ngt she is not maximizing the treatment of psbo, likely prolonging her hospital stay, and increasing the chances of needing surgical intervention acutely.
[2020-03-16 06:55] VITALS: BP 114/54; PULSE 56; TEMP 98.7
[2020-03-16 07:52] LABS: EOS % 3.6 % (0-4.5); HEMATOCRIT 32.3 % (32.4-45.2); HEMOGLOBIN 10.9 GM/dl (10.7-15.3); LYMPH % 35.2 % (8-40); MCH 28.8 pg (25.7-33.7); MCHC 33.8 g/dl (32.0-36.0); MEAN CELL VOLUME 85.1 fl (80-96); MEAN PLT VOLUME 7.6 fl (7.5-11.1); MONO % 9.6 % (3.8-10.2); NEUT % 50.6 % (42.8-82.8); PLATELET COUNT 285 K/MM3 (134-434); RDW 13.2 % (11.6-15.6); WHITE BLOOD COUNT 5.5 K/mm3 (4.0-10.8)
--- NOTE | 2020-03-16 08:11 | PN ---
Physical Exam: SUBJECTIVE: Patient seen and examined OBJECTIVE: Vital Signs Period Temp Pulse Resp BP Sys/[place] Pulse Ox Last 24 Hr 97.7 F-98.7 F 56-84 18-18 114-137/54-81 97-99 GENERAL: The patient is awake, alert, and fully oriented, in no acute distress. HEAD: Normal with no signs of trauma. EYES: PERRL, extraocular movements intact, sclera anicteric, conjunctiva clear. No ptosis. ENT: Ears normal, nares patent, oropharynx clear without exudates, moist mucous membranes. NECK: Trachea midline, full range of motion, supple. LUNGS: Breath sounds equal, clear to auscultation bilaterally, no wheezes, no crackles, no accessory muscle use. HEART: Regular rate and rhythm, S1, S2 without murmur, rub or gallop. ABDOMEN: Soft, nontender, nondistended, normoactive bowel sounds, no guarding, no rebound, no hepatosplenomegaly, no masses. EXTREMITIES: 2+ pulses, warm, well-perfused, no edema. NEUROLOGICAL: Cranial nerves II through XII grossly intact. Normal speech, gait not observed. PSYCH: Normal mood, normal affect. SKIN: Warm, dry, normal turgor, no rashes or lesions noted Laboratory Results - last 24 hr 03/16/20 07:30 WBC 5.5 RBC 3.80 Hgb 10.9 Hct 32.3 L MCV 85.1 MCH 28.8 MCHC 33.8 RDW 13.2 Plt Count 285 MPV 7.6 Absolute Neuts (auto) 2.8 Neutrophils % 50.6 Lymphocytes % 35.2 Monocytes % 9.6 Eosinophils % 3.6 Basophils % 1.0 Active Medications Generic Name Dose Route Start Last Admin Trade Name Freq PRN Reason Stop Dose Admin Acetaminophen 1,000 mg 03/15/20 12:23 03/15/20 20:55 Ofirmev Injection - IVPB 03/16/20 12:23 1,000 mg Q6H PRN Administration PAIN LEVEL 1-5 Sodium Chloride 1,000 mls @ 75 mls/hr 03/14/20 22:45 03/15/20 22:09 Normal Saline - IV 75 mls/hr ASDIR RAUL Administration Morphine Sulfate 2 mg 03/15/20 12:10 03/15/20 17:50 Morphine Injection - IVPUSH 2 mg Q4H PRN Administration PAIN LEVEL 6-10 ASSESSMENT/PLAN:
[2020-03-16 08:12] LABS: ALBUMIN 2.9 g/dl (3.4-5.0); BILIRUBIN,TOTAL 0.5 mg/dl (0.2-1); CREATININE 0.7 mg/dl (0.55-1.3); MAGNESIUM 1.9 mg/dL (1.8-2.4); POTASSIUM 3.4 mmol/L (3.5-5.1); TOT PROT 5.6 g/dl (6.4-8.2)
[2020-03-16] MEDS ORDERED: POTASSIUM CHLORIDE TABS 20 MEQ TABLET.ER (FP) PO SCH (08:30)
--- NOTE | 2020-03-16 09:19 | PN ---
Progress Note (short form) - Note Progress Note: surgery pt currently off the floor. kub pending. no bm or vomit reported. will follow kub.
--- NOTE | 2020-03-16 13:54 | DS ---
Physical Exam: SUBJECTIVE: Patient seen and examined OBJECTIVE: Vital Signs Period Temp Pulse Resp BP Sys/[place] Pulse Ox Last 24 Hr 97.7 F-98.7 F 56-84 18-18 114-137/54-81 97-100 PHYSICAL EXAM GENERAL: The patient is awake, alert, and fully oriented, in no acute distress. HEAD: Normal with no signs of trauma. EYES: PERRL, extraocular movements intact, sclera anicteric, conjunctiva clear. ENT: Ears normal, nares patent, oropharynx clear without exudates, moist mucous membranes. NECK: Trachea midline, full range of motion, supple. LUNGS: Breath sounds equal, clear to auscultation bilaterally, no wheezes, no crackles, no accessory muscle use. HEART: Regular rate and rhythm, S1, S2 without murmur, rub or gallop. ABDOMEN: Soft, nontender, nondistended, normoactive bowel sounds, no guarding, no rebound, no hepatosplenomegaly, no masses. EXTREMITIES: 2+ pulses, warm, well-perfused, no edema. NEUROLOGICAL: Cranial nerves II through XII grossly intact. Normal speech, gait not observed. PSYCH: Normal mood, normal affect. SKIN: Warm, dry, normal turgor, no rashes or lesions noted. LABS Laboratory Results - last 24 hr 03/14/20 03/16/20 03/16/20 23:00 07:30 07:30 WBC 5.5 RBC 3.80 Hgb 10.9 Hct 32.3 L MCV 85.1 MCH 28.8 MCHC 33.8 RDW 13.2 Plt Count 285 MPV 7.6 Absolute Neuts (auto) 2.8 Neutrophils % 50.6 Lymphocytes % 35.2 Monocytes % 9.6 Eosinophils % 3.6 Basophils % 1.0 Sodium 136 Potassium 3.4 L Chloride 107 Carbon Dioxide 24 Anion Gap 5 L BUN 3.0 L Creatinine 0.7 Est GFR (CKD-EPI)AfAm 115.45 Est GFR (CKD-EPI)NonAf 99.62 Random Glucose 75 Calcium 8.0 L Magnesium 1.9 Total Bilirubin 0.5 AST 12 L ALT 10 L Alkaline Phosphatase 34 L Total Protein 5.6 L Albumin 2.9 L COVID-19 ([place]) Not detected HOSPITAL COURSE: Date of Admission:03/14/20 Date of Discharge: 03/16/20 Discharge Summary Problems reviewed: Yes Reason For Visit: EPIGASTRIC ABDOMINAL PAIN, SBO Current Active Problems Epigastric abdominal pain (Acute) Small bowel obstruction (Acute) Condition: Guarded - Instructions Diet, Activity, Other Instructions: Maintain a liquid diet for one week. You should follow up with Dr. Worrell in 2-3 weeks. Referrals: Yulia Deleon MD [Primary Care Provider] - - Home Medications Comprehensive Discharge Medication List: Ambulatory Orders NK [No Known Home Medication] 03/14/20
== END 2020-03-16 14:45 | disposition home or self-care (01) | DRG 390 ==
LOC: FER 17:48 → FM/S 23:33
PROVIDERS: ADMIT Internal Medicine; ATTEND Nurse Practitioner Acute Care
DX: K56.699 Other intestinal obstruction unspecified as to partial versus complete obstruction (principal); R10.13 Epigastric pain; D50.9 Iron deficiency anemia, unspecified; K29.70 Gastritis, unspecified, without bleeding; Z88.0 Allergy status to penicillin
CPT/HCPCS: 36415; 74019-TC-FY; 74177-TC; 80048; 80053; 82550; 82553; 83690; 83735; 84484; 85025; 85027; 93005; 99285-25; J0131; J7030; Q9967; U0003

== ENCOUNTER 2020-04-29 17:15 | Emergency (ER) | payer BC ==
[2020-04-29 17:23] VITALS: TEMP 98.9; BMI 37.8
--- NOTE | 2020-04-29 17:23 | PDOC ---
History of Present Illness - General Chief Complaint: Pain Stated Complaint: ABD PAIN Time Seen by Provider: 04/29/20 17:23 - History of Present Illness Initial Comments: 04/29/20 17:53 Complaint: Abdominal pain nausea and vomiting HPI: Recent appendectomy, subsequent small bowel obstruction, persistent mid abdominal pain, intermittent. This morning pain became more severe after eating 3 chunks of pineapple and some argueta, vomited undigested food several times, most recently upon admission to the ER. Vomiting seems to relieve the pain. Mild nausea and epigastric pain persist. No lower quadrant or pelvic pain. Review of systems: No fever/chills, hematemesis, melena, bloody stool. Normal bowel movement this afternoon. No chest pain, shortness of breath, URI symptoms, sore throat, cough, visual or focal neurologic symptoms, unsteadiness of gait, no lower abdominal or pelvic pain, urinary tract symptoms, vaginal bleeding or discharge. Remainder of systems reviewed and negative Past medical history: Appendectomy and subsequent SBO as described above. Chronic low back pain. Takes occasional Motrin, but infrequently due to her "stomach problems" no other known GI illnesses. No cardiac or pulmonary disease . No regular medications Social/family history reviewed and noncontributory Physical exam: Alert and oriented, moderately obese, mild distress due to epigastric pain and nausea. Afebrile, vital signs normal No pallor or icterus. PERRLA ENT clear. Mucous membranes moist Neck supple without bruit mass or nodes Lungs clear, full breath sounds bilaterally CV regular without murmur rub or gallop pulses full and symmetric no JVD or edema no bruits Abdomen nondistended. Bowel sounds normal. Soft without mass organomegaly. There is mild tenderness to deep palpation in the epigastrium but no guarding or rebound. No CVAT. No lower quadrant or pelvic tenderness Neurological intact Extremities no CCE Skin clear, no rash, adequate turgor. Impression: Possible recurrent partial small bowel obstruction versus gastritis/PUD versus viral gastroenteritis. Plan: Labs and x-ray. Further evaluation and treatment depending on results. Past History - Medical History Allergies/Adverse Reactions: Allergies Allergy/AdvReac Type Severity Reaction Status Date / Time Penicillins Allergy Rash Verified 04/29/20 17:18 Home Medications: Ambulatory Orders NK [No Known Home Medication] 03/14/20 Anemia: Yes (ON IRON) Asthma: No Cancer: No Cardiac Disorders: No CVA: No COPD: No CHF: No DVT: No Dementia: No Diabetes: No GI Disorders: Yes Disorders: No HTN: No Hypercholesterolemia: No Liver Disease: No Seizures: No Thyroid Disease: No - Surgical History Abdominal Surgery: Yes (VENTRAL HENRIA REPAIR-2014) Appendectomy: Yes (LAPROSCOPIC WITH SB RESECTION) Cardiac Surgery: No Cholecystectomy: No Lung Surgery: No Neurologic Surgery: No Orthopedic Surgery: Yes (RIGHT KNEE ARTHROSCOPY-2016) - Reproductive History Is Patient Now?: No Tubal Ligation: Yes - Immunization History Immunization Up to Date: Yes - Psycho-Social/Smoking History Smoking Status: No Smoking History: Never smoked Have you smoked in the past 12 months: No Number of Cigarettes Smoked Daily: 0 If you are a former smoker, when did you quit?: 1997 Information on smoking cessation initiated: No - Substance Abuse Hx (Audit-C & DAST Scrn) How often the patient has a drink containing alcohol: Monthly or less Score: In Men: 4 or > Positive; In Women: 3 or > Positive: 1 Screen Result (Pos requires Nsg. Audit-10AR): Negative In the last yr the pt used illegal drug/Rx for NonMed reason: No Score: Yes response is considered Positive: 0 Screen Result (Positive result requires Nsg. DAST-10): Negative Abd/GI Specific PMHX - Complaint Specific PMHX Colitis: No Diverticulitis: No Gall Bladder Disease: No GERD: Yes Hepatitis: No Irritable Bowel Synd (IBS): No Pancreatitis: No GI Ulcer Disease: No *Physical Exam - Vital Signs Last Vital Signs Temp Pulse Resp BP Pulse Ox 98.9 F 102 H 20 154/81 100 04/29/20 17:15 04/29/20 17:15 04/29/20 17:15 04/29/20 17:15 04/29/20 17:15 ED Treatment Course - LABORATORY CBC & Chemistry Diagram: 04/29/20 17:40 04/29/20 17:30 Medical Decision Making - Medical Decision Making 04/29/20 18:12 CBC, chemistries, urinalysis without significant abnormalities. Specifically, normal white blood count. 04/29/20 18:43 Abdominal x-ray was reviewed with Dr. Wiggins, radiologist. No obstruction. Tolerating oral fluids well. Nausea and pain is completely resolved. Discharge - Discharge Information Problems reviewed: Yes Clinical Impression/Diagnosis: Epigastric abdominal pain Condition: Improved Disposition: HOME - Admission No - Follow up/Referral Referrals: Fidel Mcknight MD [Staff Physician] - - Patient Discharge Instructions Additional Instructions: Continue small amounts of clear liquids tonight, if symptoms do not recur, gradually progress to a normal diet tomorrow. Follow-up with umbrella repairer as directed. If symptoms recur or additional symptoms develop, return to ER for further evaluation. - Post Discharge Activity
[2020-04-29] MEDS ORDERED: ONDANSETRON 4 MG/2 ML VIAL IVPB ONE (17:52)
[2020-04-29] MEDS ORDERED: SODIUM CHLORIDE 500 ML IV STA (17:53)
[2020-04-29 17:56] LABS: EOS % 1.2 % (0-4.5); HEMATOCRIT 37.3 % (32.4-45.2); HEMOGLOBIN 12.5 GM/dl (10.7-15.3); LYMPH % 31.4 % (8-40); MCH 29.6 pg (25.7-33.7); MCHC 33.5 g/dl (32.0-36.0); MEAN CELL VOLUME 88.5 fl (80-96); MEAN PLT VOLUME 7.8 fl (7.5-11.1); MONO % 7.5 % (3.8-10.2); NEUT % 55.9 % (42.8-82.8); PLATELET COUNT 390 K/MM3 (134-434); RBC 4.21 M/mm3 (3.60-5.2); RDW 13.9 % (11.6-15.6); WHITE BLOOD COUNT 7.1 K/mm3 (4.0-10.8)
[2020-04-29] MEDS ORDERED: ONDANSETRON 4 MG/2 ML VIAL ONE (17:57)
[2020-04-29 18:08] LABS: ALBUMIN 3.7 g/dl (3.4-5.0); BILIRUBIN,TOTAL 0.5 mg/dl (0.2-1); CALCIUM 8.7 mg/dl (8.5-10); CREATININE 1.1 mg/dl (0.55-1.3); TOT PROT 7.2 g/dl (6.4-8.2)
[2020-04-29 19:05] VITALS: BP 127/84; PULSE 70
== END 2020-04-29 19:10 | disposition home or self-care (01) ==
LOC: FER 17:15
PROC: 3E033NZ Introduction of Analgesics, Hypnotics, Sedatives into Peripheral Vein, Percutaneous Approach (ICD-10-PCS; principal; 2020-04-29)
PROC: 3E0337Z Introduction of Electrolytic and Water Balance Substance into Peripheral Vein, Percutaneous Approach (ICD-10-PCS; 2020-04-29)
DX: R10.13 Epigastric pain (principal)
CPT/HCPCS: 36415; 74019-TC-FY; 80053; 81003; 81015; 85025; 99285-25

== ENCOUNTER 2021-06-28 08:24 | Emergency (ER) | payer OTHER, BC ==
[2021-06-28 08:28] VITALS: BP 96/71; PULSE 72; TEMP 97.6; BMI 39.1
[2021-06-28] MEDS ORDERED: LIDOCAINE 5% TOPICAL PATCH TP ONE (08:58)
[2021-06-28] MEDS ORDERED: NAPROXEN 500 MG TABLET PO ONE (08:58)
[2021-06-28] MEDS ORDERED: LIDOCAINE 5% TOPICAL PATCH ONE (09:01)
[2021-06-28] MEDS ORDERED: NAPROXEN 500 MG TABLET ONE (09:01)
[2021-06-28] MEDS ORDERED: LIDOCAINE PATCH REMOVAL MC SCH (22:00)
== END 2021-06-28 09:16 | disposition home or self-care (01) ==
LOC: FER 08:24
DX: M25.511 Pain in right shoulder (principal)
CPT/HCPCS: 99283-25

== ENCOUNTER 2021-07-21 20:42 | Emergency (ER) | payer BC, OTHER ==
[2021-07-21 21:07] VITALS: BP 117/69; PULSE 99; TEMP 102.6; BMI 39.1
[2021-07-21] MEDS ORDERED: ONDANSETRON 4 MG/2 ML VIAL IVPUSH ONE (21:34)
[2021-07-21] MEDS ORDERED: SODIUM CHLORIDE 1,000 ML IV STA (21:34)
[2021-07-21] MEDS ORDERED: ACETAMINOPHEN 1000 MG/100 ML VIAL IVPB ONE (21:38)
[2021-07-21] MEDS ORDERED: ONDANSETRON 4 MG/2 ML VIAL ONE (21:53)
[2021-07-21] MEDS ORDERED: ACETAMINOPHEN INJECTION 100 ML IVPB ONE (21:53)
[2021-07-21 22:26] LABS: ALBUMIN 3.3 g/dl (3.4-5.0); BILIRUBIN,TOTAL 1.5 mg/dl (0.2-1); CALCIUM 8.3 mg/dl (8.5-10); CREATININE 1.1 mg/dl (0.55-1.3); TOT PROT 6.9 g/dl (6.4-8.2)
[2021-07-21 23:59] LABS: BASO % 0.4 % (0-2.0); EOS % 0.2 % (0-4.5); HEMATOCRIT 37.5 % (32.4-45.2); HEMOGLOBIN 12.4 GM/dL (10.7-15.3); LYMPH % 28.9 % (8-40); MCH 28.4 pg (25.7-33.7); MCHC 33.1 g/dl (32.0-36.0); MEAN CELL VOLUME 85.8 fl (80-96); MEAN PLT VOLUME 8.1 fl (7.5-11.1); MONO % 8.6 % (3.8-10.2); NEUT % 61.9 % (42.8-82.8); PLATELET COUNT 262 10^3/uL (134-434); RBC 4.37 M/mm3 (3.60-5.2); RDW 14.8 % (11.6-15.6); WHITE BLOOD COUNT 6.4 K/mm3 (4.0-10.0)
== END 2021-07-22 00:27 | disposition home or self-care (01) ==
LOC: FER 20:42
PROC: 3E033GC Introduction of Other Therapeutic Substance into Peripheral Vein, Percutaneous Approach (ICD-10-PCS; principal; 2021-07-21)
DX: B34.9 Viral infection, unspecified (principal)
CPT/HCPCS: 36415; 71045-TC-FY; 80053; 85025; 87804; 99284-25; C9803; J0131; U0003; U0005

== ENCOUNTER 2022-03-29 17:58 | Emergency (ER) | payer OTHER, BC ==
[2022-03-29 18:16] VITALS: BP 116/73; PULSE 90; RESP 18; TEMP 98.4; BMI 41.2
== END 2022-03-29 19:08 | disposition home or self-care (01) ==
LOC: SUPCPDRO 17:58 → FER 17:58
DX: S60.221A Contusion of right hand, initial encounter (principal); S39.012A Strain of muscle, fascia and tendon of lower back, initial encounter; Y99.9 Unspecified external cause status
CPT/HCPCS: 73130-TC-RT-FY; 99283-25